=== PATIENT | male | born 1945 | race Caucasian/White ===

== ENCOUNTER 2020-11-24 09:48 | Emergency (ER) | payer MEDICARE, OTHER, SELFPAY ==
--- NOTE | 2020-11-24 10:17 | PC.NURSE ---
1005 called pt on phone, no answer 1010 called pt, left a message 1015 pt walked in to urgent care, taken to triage
[2020-11-24 10:31] VITALS: BP 172/60; PULSE 59; RESP 20; TEMP 36; O2SAT 99
[2020-11-24 10:34] VITALS: BP 172/60; PULSE 59; RESP 20; TEMP 36; O2SAT 99
--- NOTE | 2020-11-24 10:40 | ED.BACK ---
HPI - Back Pain/Injury General Chief Complaint: Back Pain/Injury Stated Complaint: BACK PAIN Time Seen by Provider: 11/24/20 10:27 Source: patient and RN notes reviewed Mode of arrival: ambulatory Limitations: no limitations History of Present Illness HPI Narrative: Patient presents today complaining of right sided mid back pain since yesterday. He was holding onto a large truck handle, when his foot slipped and he fell downward, still holding on the handle with his right hand, straining his midback, below the shoulder blade. Denies numbness or tingling in the arm or hand. Denies neck pain. Pain increases when he tries to reach above his head. He is pain-free at rest, but this increases to 10/10 with movement of the arm or twisting of the body. He has tried a heating pad, Tylenol, and leftover pain pills from a tooth extraction without much relief. He is unable to get comfortable to sleep last night, so he ended up falling asleep on his couch. MD elicited complaint: back pain and back injury Related Data Home Medications Medication Instructions Recorded Confirmed amlodipine 11/24/20 doxazosin mg 11/24/20 flu vacc [id number](65yr up)-PF IM 11/24/20 [Fluzone HighDose Quad 20-21 PF] lisinopril 11/24/20 Allergies Allergy/AdvReac Type Severity Reaction Status Date / Time No Known Allergies Allergy Verified 11/24/20 10:34 Review of Systems Review of Systems: Narrative: CONSTITUTIONAL: Denies body aches, fever, chills, or sweats. EYES: Denies visual changes, redness, or discharge. ENT: Denies rhinorrhea, congestion, sore throat, or otalgia. CARDIOVASCULAR: Denies chest pain, palpitations, or edema. RESPIRATORY: Denies cough or dyspnea. GASTROINTESTINAL: Denies abdominal pain, nausea, vomiting, or diarrhea. GENITOURINARY: Denies dysuria or hematuria. SKIN: Denies rash, itching, or wounds. MUSCULOSKELETAL: Denies joint pain, or myalgia. + Mid back pain NEUROLOGIC: Denies headache, numbness, tingling, or weakness. PSYCH: Denies depression or anxiety. [facility] Past Medical History Medical History (Updated 11/24/20 @ 12:37 by Cintia Overton, CERTIFIED EXECUTIVE CHEF, ) Hypercholesterolemia Hypertension Comments Your blood pressure was elevated above 120/80 today at Urgent Care. This puts you above the threshold for follow up. Please schedule a followup visit with your personal physician as soon as possible, for further evaluation and treatment. Even blood pressure exceeding 120/80 may indicate pre-hypertension. Exam Narrative: Exam Narrative: GENERAL: Well-appearing, well-nourished, and in no acute distress. HEAD: Normocephalic, atraumatic. EYES: EOMI. No redness or drainage. Conjunctivae normal. ENT: Mucous membranes pink and moist. NECK: Normal AROM. Supple. No lymphadenopathy. Nontender. CHEST: No respiratory distress. Nontender anterior ribs. MUSCULOSKELETAL: No bony tenderness of the spine. Right mid thoracic paraspine muscle tenderness, inferior to the scapular, extending to the lateral rib area. Pain increases with AROM of the right arm. AROM is full with significant increased pain with upward reaching. Distal sensation intact. Capillary refill normal. Radial pulse normal. Handgrips equal and strong. EXTREMITIES: Normal range of motion. No edema. SKIN: Warm, dry, no rash. Capillary refill normal. Normal skin turgor. NEURO: No focal deficits. Alert and oriented x3. Gait steady. PSYCH: Normal affect. No signs of depression or anxiety. Course Vital Signs Vital signs: Vital Signs Temperature 96.8 F L 11/24/20 10:31 Pulse Rate 59 L 11/24/20 10:31 Respiratory Rate 20 11/24/20 10:31 Blood Pressure 172/60 H 11/24/20 10:31 Pulse Oximetry 99 11/24/20 10:31 Temperature 96.8 F L 11/24/20 10:34 Pulse Rate 59 L 11/24/20 10:34 Respiratory Rate 20 11/24/20 10:34 Blood Pressure 172/60 H 11/24/20 10:34 Pulse Oximetry 99 11/24/20 10:34 Reviewed. Pt has been instructed to follow
== END 2020-11-24 10:56 | disposition home or self-care (01) ==
PROVIDERS: Emergency Provider Nurse Practitioner; PCP Internal Medicine
DX: S29.012A Strain of muscle and tendon of back wall of thorax, initial encounter (principal); W01.0XXA Fall on same level from slipping, tripping and stumbling without subsequent striking against object, initial encounter; E78.00 Pure hypercholesterolemia, unspecified; I10 Essential (primary) hypertension
CPT/HCPCS: 99203; G0463

== ENCOUNTER 2022-12-05 12:33 | Outpatient (CLI) | payer MEDICARE, OTHER, SELFPAY ==
[2022-12-05 21:26] LABS: Alanine Aminotransferase 29 U/L (6-50); Albumin Level 3.9 g/dL (3.5-5.1); Alkaline Phosphatase 61 U/L (38-126); Anion Gap 6 mmol/L (8-16); Aspartate Amino Transferase 35 U/L (17-59); Bilirubin,Total 0.8 mg/dL (0.2-1.3); Blood Urea Nitrogen 16 mg/dL (9-20); Calcium 9.1 mg/dL (8.4-10.2); Carbon Dioxide 28 mmol/L (22-30); Chloride 106 mmol/L (98-107); Cholesterol 207 mg/dL (0-200); Estimated Glomerular Filt Rate > 60; Glucose 92 mg/dL (65-110); HDL Direct 51 mg/dL; Potassium 4.2 mmol/L (3.4-5.0); Sodium 140 mmol/L (137-145); Triglycerides 88 mg/dL (<150)
[2022-12-05 21:42] LABS: LDL Cholesterol Direct 123 mg/dL
== END 2022-12-05 12:34 | disposition home or self-care (01) ==
PROVIDERS: PCP Family Medicine; Visit Provider Nurse Practitioner
DX: E55.9 Vitamin D deficiency, unspecified (principal); E78.5 Hyperlipidemia, unspecified; Z12.5 Encounter for screening for malignant neoplasm of prostate
CPT/HCPCS: 36415; 80053; 80061; 82306; 84153; G0103

== ENCOUNTER 2023-08-06 09:34 | Outpatient (CLI) | payer MEDICARE, OTHER, SELFPAY | END 2023-08-06 09:35 | disposition home or self-care (01) | LOC: ANHLAB 09:37 | PROVIDERS: PCP Family Medicine; Visit Provider Internal Medicine Cardiovascular Disease | DX: E78.5 Hyperlipidemia, unspecified (principal) | CPT/HCPCS: 36415; 84443 ==

== ENCOUNTER 2023-09-11 12:28 | Outpatient (CLI) | payer MEDICARE, OTHER, SELFPAY ==
--- NOTE | 2023-09-11 12:46 | ECHO_ITS ---
Patient Info Name: Ronny Hernandez Age: 78 years : 1945 Gender: Male Ht: 68 in Wt: 200 lbs BSA: 2.11 m2 HR: 62 bpm BP: 127 / 83 mmHg Heart Rhythm: Sinus Rhythm Technical Quality: Good Exam Date: 09/11/2023 12:50 PM Exam Location: [facility] Patient Status: Outpatient Admit Date: 09/11/2023 Staff Ordering Physician: Rudy Jewell DO Professor Of Anthropology: Jose Dutta RDCS Attending Provider: Rudy Jewell DO Referring Physician: Best ROMERO; Exam Type: CA echo doppler color flow Study Info Indications - murmur Complete two-dimensional, color flow and Doppler transthoracic echocardiogram is performed. Summary 1. Complete two-dimensional, color flow and Doppler transthoracic echocardiogram is performed. 2. Left ventricular chamber dimension is normal. 3. Left ventricular systolic function is normal, estimated at 60-65%. 4. The left ventricular diastolic function is abnormal. 5. E/e' 14 is mildly elevated. 6. Left atrial chamber dimension is moderately enlarged. 7. There is mild aortic valve sclerosis. 8. There is mild to moderate mitral valve regurgitation. 9. There is mild tricuspid valve regurgitation. 10. No pulmonary hypertension, estimated pulmonary arterial systolic pressure is 24 mmHg. 11. There is trace pulmonic regurgitation. Left Ventricle E/e' 14 is mildly elevated. Left ventricular chamber dimension is normal. Left ventricular systolic function is normal, estimated at 60-65%. The left ventricular diastolic function is abnormal. Right Ventricle Right ventricular chamber dimension is normal. Right ventricular systolic function is normal. Left Atria Left atrial chamber dimension is moderately enlarged. Right Atria Right atrial chamber dimension is normal. Aortic Valve The aortic valve is trileaflet. There is mild aortic valve sclerosis. There is no aortic valve stenosis. There is no aortic valve regurgitation. Pulmonic Valve There is trace pulmonic regurgitation. Mitral Valve There is no mitral valve stenosis. There is mild to moderate mitral valve regurgitation. Tricuspid Valve There is mild tricuspid valve regurgitation. No pulmonary hypertension, estimated pulmonary arterial systolic pressure is 24 mmHg. Pericardium/Pleural There is no pericardial effusion. Inferior Vena Cava Normal inferior vena cava with >50% collapse upon inspiration consistent with normal right atrial pressure, 5 mmHg. Aorta The aortic root size at the sinus of Valsalva is normal. Left Ventricular Outflow Tract Name Value Normal LVOT 2D LVOT Diameter 2.0 cm LVOT Doppler LVOT Peak Gradient 6 mmHg LVOT Mean Gradient 4 mmHg LVOT VTI 41 cm LVOT VTI/AV VTI Ratio 0.8 LVOT Stroke Volume 136 ml LVOT CO 5.4 l/min LVOT CI 2.5 l/min/m2 Pulmonic Valve Name Value Normal RVOT Doppler
== END 2023-09-11 12:29 | disposition home or self-care (01) ==
LOC: ANHCARD 12:30
PROVIDERS: PCP Family Medicine; Visit Provider Internal Medicine Cardiovascular Disease
DX: R01.1 Cardiac murmur, unspecified (principal); I08.3 Combined rheumatic disorders of mitral, aortic and tricuspid valves
CPT/HCPCS: 93306

== ENCOUNTER 2024-01-08 09:53 | Outpatient (CLI) | payer MEDICARE, OTHER, SELFPAY ==
[2024-01-08 19:25] LABS: Basophils Percent Auto 0.4 % (0.2-1.2); Eosinophils Absolute Auto 0.1 K/mm3 (0-0.3); Eosinophils Percent Auto 3.1 % (0-4.4); Hematocrit 44.4 % (42.0-52.0); Hemoglobin 14.2 g/dL (14.0-18.0); Immature Granulocyte Absolute 0.01 K/mm3 (0.00-0.031); Immature Granulocyte Percent A 0.2 % (0-0.5); Lymphocytes Absolute Auto 1.02 K/mm3 (0.9-3.2); Lymphocytes Percent Auto 22.8 % (18.3-44.2); Mean Corpuscular Hemoglobin 29.8 pg (26-34); Mean Corpuscular Volume 93.3 fl (80-100); Mean Platelet Volume 12.2 fl (7.4-10.4); Monocytes Absolute Auto 0.4 K/mm3 (0.1-0.6); Monocytes Percent Auto 8.5 % (2.6-8.5); Neutrophils Absolute Auto 2.9 K/mm3 (1.3-6.7); Platelet Count Result 159 k/mm3 (150-375); Red Blood Count 4.76 M/mm3 (4.6-6.20); Red Cell Distribution Width 13.3 % (11.5-14.5); White Blood Count 4.5 K/mm3 (4.5-10.0)
[2024-01-08 19:28] LABS: Alanine Aminotransferase 18 U/L (6-50); Alkaline Phosphatase 67 U/L (38-126); Anion Gap 6 mmol/L (8-16); Aspartate Amino Transferase 48 U/L (17-59); Bilirubin,Total 0.7 mg/dL (0.2-1.3); Blood Urea Nitrogen 22 mg/dL (9-20); Calcium 9.8 mg/dL (8.4-10.2); Carbon Dioxide 26 mmol/L (22-30); Chloride 107 mmol/L (98-107); Cholesterol 198 mg/dL (0-200); Estimated Glomerular Filt Rate 59; Glucose 97 mg/dL (65-110); HDL Direct 49 mg/dL; Potassium 4.6 mmol/L (3.4-5.0); Sodium 139 mmol/L (137-145); Triglycerides 62 mg/dL (<150)
[2024-01-08 19:40] LABS: LDL Cholesterol Direct 122 mg/dL
[2024-01-08 20:00] LABS: Prostate Specific Antigen 2.8 ng/mL (< OR = 4.0)
== END 2024-01-08 09:54 | disposition home or self-care (01) ==
LOC: ANHGOSHLAB 09:54
PROVIDERS: PCP Family Medicine; Visit Provider Family Medicine
DX: Z12.5 Encounter for screening for malignant neoplasm of prostate (principal); Z13.228 Encounter for screening for other metabolic disorders; E78.5 Hyperlipidemia, unspecified; R53.83 Other fatigue; I10 Essential (primary) hypertension
CPT/HCPCS: 36415; 80053; 80061; 84153; 85025; G0103

== ENCOUNTER 2025-01-27 08:40 | Outpatient (CLI) | payer MEDICARE, OTHER, SELFPAY ==
--- OUTSIDE RECORDS SUMMARY | 2025-01-27 09:23 | XMS_ITS | Clinical Summary ---
Author Organization [address] Address [address] [place] [id number] Care Team Providers Care Outside B2B Sales Name Role Phone Scout Cabello MD Primary Care Provid er Allergies No known active allergies Medications multivitamin tablet Active amLODIPine (NORVASC) 10 mg tabletIndications:B enign essential hypertension TAKE 1 TABLET BY MOUTH EVERY DAY 90 tablet 3 1 Active doxazosin (CARDURA) 4 mg tabletIndications:B enign essential hypertension,Benign prostatic hyperplasia with urinary frequency TAKE 1 TABLET BY MOUTH EVERY DAY 90 tablet 3 1 Active celecoxib (CeleBREX) 200 mg capsuleIndications: Primary osteoarthritis involving multiple joints TAKE 1 CAPSULE BY MOUTH EVERY DAY 90 capsule 3 1 Active lisinopriL (PRINIVIL,ZESTRIL) 40 mg tabletIndications:B enign essential hypertension TAKE 1 TABLET BY MOUTH EVERY DAY 90 tablet 3 3 Active Active Problems Problem Noted Date Diagnosed Date Dyslipidemia 09/29/2018 Benign prostatic hyperplasia with lower urinary tract symptoms 10/28/2017 Renal mass 07/04/2017 Personal history of colonic polyps 10/15/2016 Primary osteoarthritis involving multiple joints 10/15/2016 Benign essential hypertension 10/01/2016 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 Nephrolithiasis 01/05/2013 Immunizations Immunization Administration Dates Next Due Influenza, Quadrivalent, Hig h Dose, Preservative Free, Intrr 08/04/2020,08/04/2020 TD Preservative Free 11/26/2016 ZOSTER LIVE 12/29/2013 Surgical History Surgery Date Site/Laterality Comments [place] COLONOSCOPY FLX DX W/MATEUS J SPEC WHEN PFRMD Colonoscopy - (Added by Conv) Medical History Medical History Date Comments Personal history of urinary calculi Nephrolithiasis - 12/07/2012 (Added by Conv) Intra-abdominal and pelvic s welling, mass and lump, unspecified site Mass of abdomen - enoc l mass (Added by Conv) Gout Gout - (Added by Conv) Personal history of other di seases of the circulatory system History of hypertension - (A dded by Conv) Family History Medical History Relation Name Comments Cancer Father Family history of malignant neoplasm - (Added by TW Conv) Cancer Other Cancer - (Added by TW Conv) Diabetes Other Diabetes Mellit us - (Added by Conv) Prostate cancer Other Prostate Can cer - father (Added by Conv) Relation Name Status Comments Father Other Social History Tobacco Use Types Packs/Day Years Used Date Smoking Tobacco: Former Cigarettes Q uit: 1975 Smokeless Tobacco: Never Alcohol Use Standard Drinks/Week Comments Not Currently 0 (1 standard drink = 0.6 oz pur e alcohol) PHQ-2 Answer Date Recorded PHQ-2 Score 0 09/24/2019 Sex and Gender Information Value Date Recorded Sex Assigned at Not on file 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 Gender Identity Not on file Sexual Orientation Not on file Obstetrics History Last Filed Vital Signs Vital Sign Reading Time Taken Comments Blood Pressure 145/80 12/17/2020 2:11 PM REAL ESTATE ADMINISTRATIVE ASSISTANT Pulse 64 12/17/2020 2:11 PM REAL ESTATE ADMINISTRATIVE ASSISTANT Temperature 37.2 C (98.9 F) 12/17/2020 2:11 PM REAL ESTATE ADMINISTRATIVE ASSISTANT Respiratory Rate 16 09/24/2019 9:00 AM REAL ESTATE ADMINISTRATIVE ASSISTANT Oxygen Saturation 94% 12/17/2020 2:11 PM REAL ESTATE ADMINISTRATIVE ASSISTANT Inhaled Oxygen Concentration - - Weight 90.7 kg (200 lb) 12/17/2020 2:11 PM REAL ESTATE ADMINISTRATIVE ASSISTANT Height 172.7 cm (5' 8 ) 12/17/2020 2:11 PM REAL ESTATE ADMINISTRATIVE ASSISTANT Body Mass Index 30.41 12/17/2020 2:11 PM REAL ESTATE ADMINISTRATIVE ASSISTANT Plan of Treatment Not on file Additional Health Concerns Infection Onset Date Last Indicated COVID19 12/17/2020 12/16/2020 Insurance MEDICARE [facility] Care Teams Outside B2B Sales Relationship Specialty Start Date End Date Scout Cabello MD [facility] [address] [place] [address] PCP - General Family Medicine 04/23/21
--- OUTSIDE RECORDS SUMMARY | 2025-01-27 09:23 | XMS_ITS | Encounter Summary ---
Author Organization [facility] Care Team Providers Care Barge Captain Name Role Phone Scout Cabello MD Primary Care Provid er Unknown, Notinfile Primary Care Provider Unavail able Scout Cabello MD Primary Care Provid er Aime Sandhu MD Primary Care Provider [phone] [phone] Scout Cabello MD Primary Care Provid er Encounter Details Date Type Department Care Team (Latest Contact Info) Description 02/13/2017 Orders Only [facility]IN[facility] ProviderRobbie MD [address] [place], [place] [id number] Social History Tobacco Use Types Packs/Day Years Used Date Smoking Tobacco: Former Sex and Gender Information Value Date Recorded Sex Assigned at Not on file 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 us Historical Provider Final Res ult documented in this encounter Visit Diagnoses Not on filedocumented in this encounter Additional Health Concerns Infection Onset Date Last Indicated Resolved Time COVID19 12/17/2020 12/16/2020 documented as of this encounter Care Teams Barge Captain Relationship Specialty Start Date End Date Scout Cabello MD [address] [place] [address] PCP - General 07/04/17 07/08/17 Unknown, Notinfile PCP - General 07/09/17 07/15/17 Scout Cabello MD [address] [place] [address] PCP - General 07/16/17 12/16/20 Aime Sandhu MD [address] [place] [address] PCP - General 12/17/20 04/22/21 Scout Cabello MD [address] [place] [address] PCP - General Family Medicine 04/23/21 documented as of this encounter
--- OUTSIDE RECORDS SUMMARY | 2025-01-27 09:23 | XMS_ITS | Encounter Summary ---
Author Organization [facility] Facility Care Team Providers Care Cloud Systems Architect Name Role Phone Scout Cabello MD Primary Care Provid er Unknown, Notinfile Primary Care Provider Unavail able Scout Cabello MD Primary Care Provid er Aime Sandhu MD Primary Care Provider [phone] Scout Cabello MD Primary Care Provid er Encounter Details Date Type Department Care Team (Latest Contact Info) Description 06/20/2017 Orders Only [facility]INCON[facility] ProviderRobbie MD [address] [place], [place] [id number] Social History Tobacco Use Types Packs/Day Years Used Date Smoking Tobacco: Former Sex and Gender Information Value Date Recorded Sex Assigned at Not on file 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 Historical Provider Final Res ult documented in this encounter Visit Diagnoses Not on filedocumented in this encounter Additional Health Concerns Infection Onset Date Last Indicated Resolved Time COVID19 12/17/2020 12/16/2020 documented as of this encounter Care Teams Cloud Systems Architect Relationship Specialty Start Date End Date Scout Cabello MD [address] [place] [address] PCP - General 07/04/17 07/08/17 Unknown, Notinfile PCP - General 07/09/17 07/15/17 Scout Cabello MD [address] [place] [address] PCP - General 07/16/17 12/16/20 Aime Sandhu MD [address] [place] [address] PCP - General 12/17/20 04/22/21 Scout Cabello MD [address] [place] [address] PCP - General Family Medicine 04/23/21 documented as of this encounter
--- OUTSIDE RECORDS SUMMARY | 2025-01-27 09:23 | XMS_ITS | Referral Summary ---
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 Gender Identity Not on file Sexual Orientation Not on file Last Filed Vital Signs Vital Sign Reading Time Taken Comments Blood Pressure 145/80 12/17/2020 2:11 PM CHILD CARE ASSOCIATE TEACHER Pulse 64 12/17/2020 2:11 PM CHILD CARE ASSOCIATE TEACHER Temperature 37.2 C (98.9 F) 12/17/2020 2:11 PM CHILD CARE ASSOCIATE TEACHER Respiratory Rate 16 09/24/2019 9:00 AM CHILD CARE ASSOCIATE TEACHER Oxygen Saturation 94% 12/17/2020 2:11 PM CHILD CARE ASSOCIATE TEACHER Inhaled Oxygen Concentration - - Weight 90.7 kg (200 lb) 12/17/2020 2:11 PM CHILD CARE ASSOCIATE TEACHER Height 172.7 cm (5' 8 ) 12/17/2020 2:11 PM CHILD CARE ASSOCIATE TEACHER Body Mass Index 30.41 12/17/2020 2:11 PM CHILD CARE ASSOCIATE TEACHER Plan of Treatment Not on file Additional Health Concerns Infection Onset Date Last Indicated COVID19 12/17/2020 12/16/2020 Insurance MEDICARE [facility] [place] [address] Care Teams Mold Presser Relationship Specialty Start Date End Date Scout Cabello MD [facility] [address] [place] [address] PCP - General Family Medicine 04/23/21
[2025-01-27 13:46] LABS: Alanine Aminotransferase 20 U/L (6-50); Albumin Level 3.9 g/dL (3.5-5.1); Alkaline Phosphatase 62 U/L (38-126); Anion Gap 8 mmol/L (4-12); Aspartate Amino Transferase 36 U/L (17-59); Bilirubin,Total 0.8 mg/dL (0.2-1.3); Blood Urea Nitrogen 18 mg/dL (9-20); Calcium 9.2 mg/dL (8.4-10.2); Carbon Dioxide 25 mmol/L (22-30); Chloride 108 mmol/L (98-107); Cholesterol 177 mg/dL (0-200); Estimated Glomerular Filt Rate 57; Glucose 94 mg/dL (65-110); HDL Direct 40 mg/dL; Potassium 4.3 mmol/L (3.4-5.0); Sodium 141 mmol/L (137-145); Triglycerides 108 mg/dL (<150)
[2025-01-27 13:58] LABS: LDL Cholesterol Direct 94 mg/dL
== END 2025-01-27 08:41 | disposition home or self-care (01) ==
LOC: ANHGOSHLAB 08:41
PROVIDERS: Visit Provider Internal Medicine Cardiovascular Disease
DX: E78.5 Hyperlipidemia, unspecified (principal)
CPT/HCPCS: 36415; 80053; 80061

== ENCOUNTER 2025-02-22 13:18 | Outpatient (CLI) | payer MEDICARE, OTHER, SELFPAY ==
--- NOTE | 2025-02-22 13:25 | ECHO_ITS ---
Patient Info Name: Ronny Hernandez Age: 79 years : 1945 Gender: Male Ht: 68 in Wt: 205 lbs BSA: 2.14 m2 HR: 79 bpm BP: 177 / 86 mmHg Technical Quality: Good Exam Date: 02/22/2025 1:28 PM Exam Location: Echo Lab Patient Status: Outpatient Admit Date: 02/22/2025 Staff Ordering Physician: Rudy Jewell DO Donor Relations Associate: Nathalie Remy RDCS Attending Provider: Rudy Jewell DO Referring Physician: Best ROMERO; Exam Type: CA echo doppler color flow Study Info Indications R01.1 - Cardiac murmur, unspecified Complete two-dimensional, color flow and Doppler transthoracic echocardiogram is performed. Summary 1. Complete two-dimensional, color flow and Doppler transthoracic echocardiogram is performed. 2. Left ventricular chamber dimension is normal. 3. Left ventricular systolic function is normal, estimated at 65-70%. 4. There is moderate concentric increased left ventricular wall thickness. 5. The left ventricular diastolic function is abnormal. 6. E/e' 10 is mildly elevated. 7. Left atrial chamber dimension is mildly enlarged. 8. There is mild aortic valve sclerosis. 9. There is trace tricuspid valve regurgitation. 10. No pulmonary hypertension, estimated pulmonary arterial systolic pressure is 38 mmHg. Left Ventricle E/e' 10 is mildly elevated. Left ventricular chamber dimension is normal. Left ventricular systolic function is normal, estimated at 65-70%. There is moderate concentric increased left ventricular wall thickness. The left ventricular diastolic function is abnormal. Right Ventricle Right ventricular systolic function is normal and with normal TAPSE 2.3 cm. Right ventricular chamber dimension is normal. Left Atria Left atrial chamber dimension is mildly enlarged. Right Atria Right atrial chamber dimension is normal. Aortic Valve The aortic valve is trileaflet. There is mild aortic valve sclerosis. There is no aortic valve stenosis. There is no aortic valve regurgitation. Pulmonic Valve There is no pulmonic regurgitation. Mitral Valve There is no mitral valve stenosis. There is no mitral valve regurgitation. Tricuspid Valve There is trace tricuspid valve regurgitation. No pulmonary hypertension, estimated pulmonary arterial systolic pressure is 38 mmHg. Pericardium/Pleural There is no pericardial effusion. Inferior Vena Cava Normal inferior vena cava with >50% collapse upon inspiration consistent with normal right atrial pressure, 5 mmHg. Aorta The aortic root size at the sinus of Valsalva is normal. Left Ventricular Outflow Tract Name Value Normal LVOT 2D LVOT Diameter 1.9 cm LVOT Doppler LVOT Peak Gradient 12 mmHg LVOT Mean Gradient 5 mmHg LVOT VTI 30 cm LVOT VTI/AV VTI Ratio 0.7 LVOT Stroke Volume 84 ml LVOT CO 17.1 l/min LVOT CI 8.0 l/min/m2 Pulmonic Valve Name Value Normal PV Doppler PV Peak Gradient 8 mmHg Mitral Valve Name Value Normal MV Doppler MV Decel [place] 375 cm/s2 MV PHT 69 ms MV Area (PHT) 3.2 cm2 4.0-5.0 MV Diastolic Function MV E Peak Velocity 89 cm/s MV A Peak Velocity 113 cm/s MV E/A 0.8 MV Decel Time 238 ms MV Annular TDI MV E/e' (Septal) 10.2 <=8.0 MV E/e' (Lateral) 10.1 <=8.0 MV E/e' (Average) 10.1 Tricuspid Valve Name Value Normal TV Regurgitation Doppler TR Peak Velocity 287 cm/s TR Peak Gradient 33 mmHg Estimated PAP/RSVP RA Pressure 5 mmHg <=5 PA Systolic Pressure 38 mmHg <36 RV Systolic Pressure 38 mmHg <36 Aorta Name Value Normal Ascending Aorta Ao Root Diameter (MM) 2.8 cm Ao Root Diam Index (MM) 1.3 cm/m2 Aortic Valve Name Value Normal AV Doppler AV Peak Velocity 235 cm/s AV Peak Gradient 22 mmHg AV Mean Gradient 10 mmHg AV VTI 45 cm AV Area (Cont Eq VTI) 1.9 cm2 >=3.0 AV Area (Cont Eq Emeterio) 2.1 cm2 AV Regurgitation 2D LVOT Area 2.8 cm2 Ventricles Name Value Normal LV Dimensions 2D/MM IVS Diastolic Thickness (2D) 1.3 cm 0.6-1.0 LVID Diastole (2D) 4.4 cm 4.2-5.8 LVIW Diastolic Thickness (2D) 1.2 cm 0.6-1.0 LVID Systole (2D) 2.5 cm 2.5-4.0 LVOT Diameter 1.9 cm LV Mass (2D Cubed) 196.47 g 88.00-224.00 LV Mass Index (2D Cubed) 92 g/m2 49-115 Relative Wall Thickness (2D) 0.52 LV Fractional Shortening/Ejection Fraction 2D/MM LV Fractional Shortening (2D) 43 % 25-43 LV EF (2D Teicholz) 75 % 52-72 LV Diastolic Volume (4C MOD) 123 ml LV EF (4C MOD) 68 % LV Diastolic Volume (2C MOD) 92 ml LV EF (2C MOD) 64 % LV Diastolic Volume (BP MOD) 108 ml 62-150 LV Diastolic Volume Index (BP MOD) 50 ml/m2 34-74 LV Systolic Volume (BP MOD) 38 ml 21-61 LV Systolic Volume Index (BP MOD) 18 ml/m2 11-31 LV EF (BP MOD) 65 % 52-72 LV Diastolic Length (4C) 8.3 cm LV Systolic Length (4C) 6.4 cm LV Stroke Volume (4C MOD) 84 ml RV Dimensions 2D/MM RVID Diastole (2D) 3.8 cm 2.5-3.5 Atria Name Value Normal LA Dimensions LA Dimension (MM) 3.2 cm 3.0-4.1 LA Volume (4C A-L) 64 ml LA Volume (BP A-L) 65 ml RA Dimensions RA Area (4C) 14.3 cm2 <=18.0 Report Signatures
--- OUTSIDE RECORDS SUMMARY | 2025-02-22 14:38 | XMS_ITS | Encounter Summary ---
Author Organization [facility] Facility Care Team Providers Care Robotic Machine Tender Production Name Role Phone Scout Cabello MD Primary Care Provid er Unknown, Notinfile Primary Care Provider Unavail able Scout Cabello MD Primary Care Provid er Aime Sandhu MD Primary Care Provider [phone] Scout Cabello MD Primary Care Provid er Encounter Details Date Type Department Care Team (Latest Contact Info) Description 02/13/2017 Orders Only [facility] ProviderRobbie MD [address] [place], [place] [phone] Social History Tobacco Use Types Packs/Day Years Used Date Smoking Tobacco: Former Sex and Gender Information Value Date Recorded Sex Assigned at Not on file 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
--- OUTSIDE RECORDS SUMMARY | 2025-02-22 14:38 | XMS_ITS | Encounter Summary ---
Author Organization [facility] Facility Care Team Providers Care Piece Jobber Name Role Phone Scout Cabello MD Primary Care Provid er Unknown, Notinfile Primary Care Provider Unavail able Scout Cabello MD Primary Care Provid er Aime Sandhu MD Primary Care Provider [phone] Scout Cabello MD Primary Care Provid er Encounter Details Date Type Department Care Team (Latest Contact Info) Description 06/20/2017 Orders Only [facility] CLINCONV ProviderRobbie MD [address] [place], [place] [id number] Social History Tobacco Use Types Packs/Day Years Used Date Smoking Tobacco: Former Sex and Gender Information Value Date Recorded Sex Assigned at Not on file 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
--- OUTSIDE RECORDS SUMMARY | 2025-02-22 14:38 | XMS_ITS | Referral Summary ---
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 Gender Identity Not on file Sexual Orientation Not on file Last Filed Vital Signs Vital Sign Reading Time Taken Comments Blood Pressure 145/80 12/17/2020 2:11 PM TRANSPORTATION EQUIPMENT PAINTER Pulse 64 12/17/2020 2:11 PM TRANSPORTATION EQUIPMENT PAINTER Temperature 37.2 C (98.9 F) 12/17/2020 2:11 PM TRANSPORTATION EQUIPMENT PAINTER Respiratory Rate 16 09/24/2019 9:00 AM TRANSPORTATION EQUIPMENT PAINTER Oxygen Saturation 94% 12/17/2020 2:11 PM TRANSPORTATION EQUIPMENT PAINTER Inhaled Oxygen Concentration - - Weight 90.7 kg (200 lb) 12/17/2020 2:11 PM TRANSPORTATION EQUIPMENT PAINTER Height 172.7 cm (5' 8 ) 12/17/2020 2:11 PM TRANSPORTATION EQUIPMENT PAINTER Body Mass Index 30.41 12/17/2020 2:11 PM TRANSPORTATION EQUIPMENT PAINTER Plan of Treatment Not on file Additional Health Concerns Infection Onset Date Last Indicated COVID19 12/17/2020 12/16/2020 Insurance MEDICARE [facility] Address: [id number] [place] [address] [facility] [place] [address] Care Teams Boiler Coverer Helper Relationship Specialty Start Date End Date Scout Cabello MD [facility] [address] [place] [address] PCP - General Family Medicine 04/23/21
--- OUTSIDE RECORDS SUMMARY | 2025-02-22 14:38 | XMS_ITS | Clinical Summary ---
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 Gender Identity Not on file Sexual Orientation Not on file Obstetrics History Last Filed Vital Signs Vital Sign Reading Time Taken Comments Blood Pressure 145/80 12/17/2020 2:11 PM GIS SPECIALIST Pulse 64 12/17/2020 2:11 PM GIS SPECIALIST Temperature 37.2 C (98.9 F) 12/17/2020 2:11 PM GIS SPECIALIST Respiratory Rate 16 09/24/2019 9:00 AM GIS SPECIALIST Oxygen Saturation 94% 12/17/2020 2:11 PM GIS SPECIALIST Inhaled Oxygen Concentration - - Weight 90.7 kg (200 lb) 12/17/2020 2:11 PM GIS SPECIALIST Height 172.7 cm (5' 8 ) 12/17/2020 2:11 PM GIS SPECIALIST Body Mass Index 30.41 12/17/2020 2:11 PM GIS SPECIALIST Plan of Treatment Not on file Additional Health Concerns Infection Onset Date Last Indicated COVID19 12/17/2020 12/16/2020 Insurance MEDICARE [facility] Care Teams Compliance Administrator Relationship Specialty Start Date End Date Scout Cabello MD [facility] [address] [place] [address] PCP - General Family Medicine 04/23/21
== END 2025-02-22 13:19 | disposition home or self-care (01) ==
PROVIDERS: PCP Emergency Medicine; Visit Provider Internal Medicine Cardiovascular Disease
DX: R93.1 Abnormal findings on diagnostic imaging of heart and coronary circulation (principal); R01.1 Cardiac murmur, unspecified
CPT/HCPCS: 93306

== ENCOUNTER 2025-07-01 08:03 | Outpatient (CLI) | payer MEDICARE, OTHER, SELFPAY ==
--- OUTSIDE RECORDS SUMMARY | 2025-07-01 08:08 | XMS_ITS | Encounter Summary ---
Author Organization [facility] Facility Care Team Providers Care Filing Machine Operator Name Role Phone Scout Cabello MD Primary Care Provid er Unknown, Notinfile Primary Care Provider Unavail able Scout Cabello MD Primary Care Provid er Aime Sandhu MD Primary Care Provider [phone] Scout Cabello MD Primary Care Provid er Encounter Details Date Type Department Care Team (Latest Contact Info) Description 02/13/2017 Orders Only [facility] CLINCONV ProviderRobbie MD [address] [place], [place] [id number] Social History Tobacco Use Types Packs/Day Years Used Date Smoking Tobacco: Former Sex and Gender Information Value Date Recorded Sex Assigned at Not on file 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
--- OUTSIDE RECORDS SUMMARY | 2025-07-01 08:08 | XMS_ITS ---
Author Organization Unknown ENCOUNTERS Encounter Performer Location Date Diagnosis Diagnosis Status [facility] [address] [place] [id number] Outpatient [facility] [address] [place] [address] [id number] [place] Pre Admit [facility] [address] [place] [address] [id number] Outpatient [facility] [address] [place] [phone] [id number] [place] Outpatient Mihai John [facility] [address] [place] [address] [id number] [place] Out[facility] [address] [place] [address] [id number] [place] Outpatient [facility] [address] [place] [address] [id number] [place] Outpatient Karliemurtaza Martinez [facility] [address] [place] [address] [id number] [place] *Note: Encounters from your own facility or health system may be excluded. Allergies, Adverse Reactions, Alerts Allergen Type Severity Identification Date Medications Name Date Quantity Days Supplied BANNER Number
--- OUTSIDE RECORDS SUMMARY | 2025-07-01 08:08 | XMS_ITS | Encounter Summary ---
Author Organization [facility] Facility Care Team Providers Care Director Acute Name Role Phone Scout Cabello MD Primary Care Provid er Unknown, Notinfile Primary Care Provider Unavail able Scout Cabello MD Primary Care Provid er Aime Sandhu MD Primary Care Provider [phone] Scout Cabello MD Primary Care Provid er Encounter Details Date Type Department Care Team (Latest Contact Info) Description 06/20/2017 Orders Only [facility] CLINCONV ProviderRobbie MD [address] [place], [place] [id number] Social History Tobacco Use Types Packs/Day Years Used Date Smoking Tobacco: Former Sex and Gender Information Value Date Recorded Sex Assigned at Not on file 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
--- OUTSIDE RECORDS SUMMARY | 2025-07-01 08:08 | XMS_ITS | Clinical Summary ---
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 MILL OPERATOR Gender Identity Not on file Sexual Orientation Not on file Obstetrics History Last Filed Vital Signs Vital Sign Reading Time Taken Comments Blood Pressure 145/80 12/17/2020 2:11 PM COLLOID MILL OPERATOR Pulse 64 12/17/2020 2:11 PM COLLOID MILL OPERATOR Temperature 37.2 C (98.9 F) 12/17/2020 2:11 PM COLLOID MILL OPERATOR Respiratory Rate 16 09/24/2019 9:00 AM COLLOID MILL OPERATOR Oxygen Saturation 94% 12/17/2020 2:11 PM COLLOID MILL OPERATOR Inhaled Oxygen Concentration - - Weight 90.7 kg (200 lb) 12/17/2020 2:11 PM COLLOID MILL OPERATOR Height 172.7 cm (5' 8) 12/17/2020 2:11 PM COLLOID MILL OPERATOR Body Mass Index 30.41 12/17/2020 2:11 PM COLLOID MILL OPERATOR Plan of Treatment Not on file Additional Health Concerns Infection Onset Date Last Indicated COVID19 12/17/2020 12/16/2020 Insurance MEDICARE [facility] Care Teams Information Technology Specialist Relationship Specialty Start Date End Date Scout Cabello MD [facility] [address] [place] [address] PCP - General Family Medicine 04/23/21
[2025-07-01 09:02] LABS: Alanine Aminotransferase 19 U/L (6-50); Albumin Level 4.0 g/dL (3.5-5.1); Alkaline Phosphatase 58 U/L (38-126); Anion Gap 5 mmol/L (4-12); Aspartate Amino Transferase 28 U/L (17-59); Bilirubin,Total 0.6 mg/dL (0.2-1.3); Blood Urea Nitrogen 22 mg/dL (9-20); Calcium 9.6 mg/dL (8.4-10.2); Carbon Dioxide 26 mmol/L (22-30); Chloride 108 mmol/L (98-107); Cholesterol 193 mg/dL (0-200); Estimated Glomerular Filt Rate 58; Glucose 107 mg/dL (65-110); HDL Direct 43 mg/dL; Potassium 4.9 mmol/L (3.4-5.0); Sodium 139 mmol/L (137-145); Total Protein 6.9 g/dL (6.3-8.2); Triglycerides 77 mg/dL (<150)
== END 2025-07-01 08:04 | disposition home or self-care (01) ==
LOC: ANHLAB 08:05
PROVIDERS: PCP Emergency Medicine; Visit Provider Emergency Medicine
DX: E55.9 Vitamin D deficiency, unspecified (principal); E78.5 Hyperlipidemia, unspecified
CPT/HCPCS: 36415; 80053; 80061; 82306

== ENCOUNTER 2025-07-12 10:54 | Outpatient (CLI) | payer MEDICARE, OTHER, SELFPAY ==
--- NOTE | ~2025-07-12 | XR_ITS ---
EXAMINATION: XR foot RT 2V DATE: 07/12/2025 11:13 INDICATION: Pain in right foot TECHNIQUE: 4 images of the right foot were obtained. COMPARISON: None. FINDINGS: Moderate joint space narrowing at the first metatarsophalangeal joint with adjacent soft tissue swelling. Moderate to severe joint space narrowing of the first tarsometatarsal joint with adjacent soft tissue swelling. No fracture. No dislocation. Vascular calcifications are noted. IMPRESSION: 1. No fracture. No dislocation. 2.Moderate joint space narrowing at the first metatarsophalangeal joint with adjacent soft tissue swelling. 3.Moderate to severe joint space narrowing of the first tarsometatarsal joint with adjacent soft tissue swelling. If symptoms persist or worsen, consider a short-term follow-up study or additional imaging for further assessment. Reviewed, dictated and finalized at location Q. IMPRESSION: 1. No fracture. No dislocation. 2.Moderate joint space narrowing at the first metatarsophalangeal joint with ad jacent soft tissue swelling. 3.Moderate to severe joint space narrowing of the first tarsometatarsal joint w ith adjacent soft tissue swelling. If symptoms persist or worsen, consider a short-term follow-up study or additio nal imaging for further assessment.
== END 2025-07-12 10:55 | disposition home or self-care (01) ==
LOC: MICIMG 10:58
PROVIDERS: PCP Emergency Medicine; Visit Provider Emergency Medicine
DX: M19.071 Primary osteoarthritis, right ankle and foot (principal); R60.9 Edema, unspecified
CPT/HCPCS: 73620

== ENCOUNTER 2025-08-02 07:53 | Emergency (ER) | payer MEDICARE, OTHER, SELFPAY ==
--- NOTE | ~2025-08-02 | CT_ITS ---
EXAMINATION: CT lumbar spine wo con COMPARISON: None HISTORY: lower back pain TECHNIQUE: Axial images were obtained through the spine without IV contrast. Coronal, sagittal reconstruction images were obtained from the axial views. CT scan performed using dose optimization techniques including the following automated exposure control; adjustment of mA and/or kV; use of iterative reconstruction technique. Automatic exposure control was used to reduce radiation dose. Permanent radiation dose record is archived to PACS. FINDINGS: The vertebral heights are intact. No fracture or subluxation. The disc heights are intact. Soft tissues demonstrate partially imaged probable complex left renal cyst but incompletely evaluated measuring 4 x 5 cm with a complex focus also of the right kidney measuring 1 x 1 cm possibly sequelae of previous intervention but incompletely evaluated, outpatient ultrasound recommended severe loss of disc height at L4-5 and L5-S1 with disc osteophyte complex and moderate to severe canal and foraminal stenosis. Impression: 1. No acute fracture. Incidental findings above Reviewed, dictated and finalized at location A. Impression: 1. No acute fracture. Incidental findings above
--- NOTE | ~2025-08-02 | CT_ITS ---
EXAMINATION: CT abdomen pelvis w con DATE: 08/02/2025 11:45 INDICATION: Right flank pain. TECHNIQUE: Computed tomography (CT) of the abdomen and pelvis was performed with 100 mL Omnipaque 350 intravenous contrast. Automated exposure control and iterative reconstruction technique were employed. The dose-length product was 862.79 mGy-cm. COMPARISON: None. FINDINGS: The visualized portions of lung bases demonstrate peripheral septal thickening in the lungs bilaterally, right worse than left, likely chronic. No bronchiectasis or honeycombing. No pleural effusion. The heart size is normal. There are coronary artery calcifications. There are calcifications of the aortic valve. No pericardial effusion. There is a small sliding hiatal hernia. There is a 5 mm cyst in the liver. The gallbladder is normal. Calcifications in the spleen are consistent with old granulomatous disease. The pancreas and adrenal glands are normal. There are cysts in the kidneys measuring up to 6.5 cm on the left. There is cortical thinning of the kidneys. There is embolization material at the hilum of right kidney upper pole. There is a 6.2 cm mass abutting the right kidney upper pole containing fat, which may be an angiomyolipoma or old fat necrosis. The prostate is moderately enlarged. There is diverticulosis of the colon without evidence of diverticulitis. There are no dilated loops of bowel. The appendix is normal. There are no pathologically enlarged lymph nodes. There is no free intraperitoneal fluid. There is an old healed right rib fracture. There is severe lower lumbar spondylosis. There is a benign bone island in L2 vertebral body. IMPRESSION: 1. No etiology for the patient's symptoms. Reviewed, dictated and finalized at location E.
[2025-08-02 07:58] VITALS: PULSE 62; RESP 17; TEMP 36.3; O2SAT 96
--- NOTE | 2025-08-02 08:02 | ED.GENADULT ---
HPI - General Adult General Chief complaint: Extremity Injury, Lower Stated complaint: right lower back, leg pain Time Seen by Provider: 08/02/25 08:01 Source: patient Mode of arrival: ambulatory Limitations: no limitations History of Present Illness HPI narrative: 80 years old white male complaining of right flank right lower back pain started 1 week ago, was seen at [facility] on July 28, and again on July 30, with diagnosis of flank pain and lower back pain, patient is not improving. He denies any recent trauma, fever, chills, nausea, vomiting, abdominal pain, or shortness of breath. Pain is radiating to the lateral side of the right hip and right thigh Related Data Home Medications ?Medication ?Instructions ?Recorded ?Confirmed ?Last Taken ?Type aspirin 81 mg tablet,delayed 81 mg PO DAILY 12/05/22 07/12/25 Unknown History release (Adult Aspirin Regimen) multivitamin (Daily Multi-Vitamin 1 tablet PO DAILY 12/05/22 07/12/25 Unknown History tablet) cholecalciferol (vitamin D3) 25 50 mcg PO DAILY 07/26/24 07/12/25 Unknown History mcg (1,000 unit) capsule Allergies Allergy/AdvReac Type Severity Reaction Status Date / Time No Known Allergies Allergy Verified 08/02/25 08:01 Review of Systems Review of Systems: All systems reviewed & are unremarkable except as noted in HPI and below PMFSH Past Medical History Medical History Hypertension Hypercholesterolemia Hypertension Family History Family History Mother , Age 85 Colon Rupture Diabetes mellitus Father , Age 78 Cancer Social History Social History Social History: caffeine- 3 cans zero sugar soda daily Years smoked: 12 Smoking status: Former smoker Second hand tobacco smoke exposure: Yes Smoking end date: 11/17/75 Alcohol intake: never Substance use: never Substance use type: does not use Do You Feel Safe in your Home?: Yes Lack of Transportation: No Lack of Food: Never True Current Housing: I Have Housing Concerned About Future Housing: No Difficulty Paying Gas/Electric Bills: No Difficulty Paying for Meds: No Currently Unemployed: Decline to Answer Education: High School Diploma/GED Difficulty w/ Childcare or Family Care: No Living arrangements: with family Occupation/Education: retired Gender identity (if verbalized by the patient): Male Sexual Orientation (if Verbalized by the Patient): Straight or Heterosexual Exam Narrative: General appearance: Well-developed, well-nourished Skin: Normal color Head: Normocephalic, nontraumatic Eyes: Clear conjunctiva ENT: Oropharynx normal, ears normal, nose normal Neck: Supple, nontender Chest and respiratory: Airway patent, no respiratory distress, no accessory muscle use Heart: Regular rate/rhythm Abdomen: Soft, nontender, no organomegaly, quiet bowel sounds Vascular: Normal peripheral pulses, normal capillary refill. Musculoskeletal: Normal range of motion, nontender back Neurologic: Alert and oriented ?3, DISPLAYER MERCHANDISE is normal as tested, no gross motor deficit Course Vital Signs Vital signs: Vital Signs Temperature 36.3 C L 08/02/25 07:58 Pulse Rate 62 08/02/25 07:58 Respiratory Rate 17 08/02/25 07:58 Pulse Oximetry 96 08/02/25 07:58 Oxygen Delivery Room Air 08/02/25 07:58 Temperature 36.3 C L 08/02/25 07:58 Pulse Rate 84 08/02/25 12:33 Respiratory Rate 16 08/02/25 12:33 Blood Pressure 169/85 H 08/02/25 12:33 Pulse Oximetry 97 08/02/25 12:33 Oxygen Delivery Room Air 08/02/25 07:[address] [facility] Narrative Medical decision making narrative: Patient came with right flank pain radiating to right lower back Vital signs are stable Physical examination consistent with tenderness at the right flank area Differential diagnosis musculoskeletal, kidney stone, pyelonephritis, intra-abdominal pathology Blood workup today includes CBC, CMP, lipase showed insignificant abnormality Urinalysis showed insignificant abnormality CT abdomen and pelvis with IV cont showed no acute abnormality. Diagnosis right flank pain, right lower back pain Patient currently on meloxicam 50 mg once a day Discharged on cyclobenzaprine The pt was discharged to home.the pt,s condition upon discharge was fair,education was provided to the pt in reference to the final impression,discharge study results,treatment,prognosis and need for follow up . Differential Diagnosis Differential Diagnosis: as above Vital Signs Vital Signs: Vital Signs Temperature 36.3 C L 08/02/25 07:58 Pulse Rate 62 08/02/25 07:58 Respiratory Rate 17 08/02/25 07:58 Pulse Oximetry 96 08/02/25 07:58 Oxygen Delivery Room Air 08/02/25 07:58 Temperature 36.3 C L 08/02/25 07:58 Pulse Rate 84 08/02/25 12:33 Respiratory Rate 16 08/02/25 12:33 Blood Pressure 169/85 H 08/02/25 12:33 Pulse Oximetry 97 08/02/25 12:33 Oxygen Delivery Room Air 08/02/25 07:58 Lab Data 08/02/25 10:48 08/02/25 10:48 Labs: Lab Results 08/02/25 Range/Units 10:48 WBC 5.1 (4.5-10.0) K/mm3 RBC 4.52 L (4.6-6.20) M/mm3 Hgb 13.4 L (14.0-18.0) g/dL Hct 39.6 L (42.0-52.0) % MCV 87.6 (80-100) fl MCH 29.6 (26-34) pg MCHC 33.8 (32-36) g/dl RDW 13.4 (11.5-14.5) % Plt Count 171 (150-375) k/mm3 MPV 10.8 H (7.4-10.4) fl Immature Gran % (Auto) 0.2 (0-0.5) % Neut % (Auto) 77.7 H (45.5-73.1) % Lymph % (Auto) 13.5 L (18.3-44.2) % Teller % (Auto) 7.6 (2.6-8.5) % Eos % (Auto) 0.6 (0-4.4) % Baso % (Auto) 0.4 (0.2-1.2) % Lymph # (Auto) 0.69 L (0.9-3.2) K/mm3 Teller # (Auto) 0.4 (0.1-0.6) K/mm3 Eos # (Auto) 0.0 (0-0.3) K/mm3 Baso # (Auto) 0.0 (0.0-0.1) K/mm3 Abs Immat Gran (auto) 0.01 (0.00-0.031) K/mm3 Absolute Neuts (auto) 4.0 (1.3-6.7) K/mm3 Absolute Nucleated RBC 0.000 (0.0-0.012) K/mm3 Nucleated RBC % 0.0 (0.0-0.2) % Sodium 137 (137-145) mmol/L Potassium 4.1 (3.4-5.0) mmol/L Chloride 108 H (98-107) mmol/L Carbon Dioxide 21 L (22-30) mmol/L Anion Gap 8 (4-12) mmol/L BUN 22 H (9-20) mg/dL Creatinine 1.15 (0.7-1.3) mg/dL Estim Creat Clear Calc 52 ml/min Estimated GFR > 60 (59 - ) Glucose 107 (65-110) mg/dL Calcium 9.6 (8.4-10.2) mg/dL Total Bilirubin 0.8 (0.2-1.3) mg/dL AST 27 (17-59) U/L ALT 20 (6-50) U/L Alkaline Phosphatase 65 (38-126) U/L Total Protein 7.1 (6.3-8.2) g/dL Albumin 4.0 (3.5-5.1) g/dL Urine Color Yellow (Yellow) Urine Appearance Clear (Clear) Urine pH 7.0 (5.0-9.0) Ur Specific [place] 1.011 (1.001-1.035) Urine Protein Negative (Negative) mg/dL Urine Glucose (UA) Negative (Negative) mg/dL Urine Ketones Trace H (Negative) mg/dL Ur Blood (Man) Negative (Negative) Urine Nitrate Negative (Negative) Urine Bilirubin Negative (Negative) Urine Urobilinogen 0.2 (<2.0) mg/dL Leukocyte Esterase Rfl Negative (Negative) PIO/UL Imaging Data Radiologist's impression: Impressions Lumbar Spine CT 08/02/25 08:17 Impression: 1. No acute fracture. Incidental findings above Critical Care Time Critical Care Time Critical Care Time: No Discharge Plan Discharge Clinical Impression: Acute flank pain, Lower back pain Patient Disposition: Home Condition: Stable Instructions: Flank Pain (ED), Back Pain (ED), Lower Back Exercises (ED) Additional Instructions: Return if symptoms are worsening , call your family physician for appointment, take Tylenol as as needed for aches and pain, continue home medications. Massage Heating pad Exercise Physical therapy Patient Language: Dutch Prescriptions: New cyclobenzaprine 10 mg tablet 10 mg PO TID PRN (Reason: muscle spasm) Qty: 20 0RF No Action aspirin [Adult Aspirin Regimen] 81 mg tablet,delayed release (DR/EC) 81 mg PO DAILY multivitamin [Daily Multi-Vitamin] Tablet 1 tablet PO DAILY cholecalciferol (vitamin D3) 25 mcg (1,000 unit) capsule 50 mcg PO DAILY meloxicam 15 mg tablet 15 mg PO DAILY Qty: 90 2RF doxazosin 4 mg tablet 4 mg PO DAILY Qty: 90 2RF hydralazine 50 mg tablet See Rx Instructions .ROUTE .COMPLEX Qty: 270 2RF Dose Instruction: TAKE 1 TABLET BY MOUTH TWICE A DAY Rx Instructions: TAKE 1 TABLET BY MOUTH TID tamsulosin [Flomax] 0.4 mg capsule 0.4 mg PO DAILY Qty: 90 2RF losartan 100 mg tablet See Rx Instructions .ROUTE .COMPLEX Qty: 90 2RF Dose Instruction: TAKE 1 TABLET BY MOUTH EVERY DAY Rx Instructions: TAKE 1 TABLET BY MOUTH EVERY DAY losartan 100 mg tablet See Rx Instructions .ROUTE .COMPLEX Qty: 90 2RF Dose Instruction: TAKE 1 TABLET BY MOUTH EVERY DAY Rx Instructions: TAKE 1 TABLET BY MOUTH EVERY DAY amlodipine 10 mg tablet See Rx Instructions .ROUTE .COMPLEX Qty: 90 2RF Dose Instruction: TAKE 1 TABLET BY MOUTH ONCE DAILY Rx Instructions: TAKE 1 TABLET BY MOUTH ONCE DAILY Follow-up/Referrals: Javier Barros MD [Primary Care Provider, Internal Medicine]
[2025-08-02 08:03] VITALS: BP 140/68; PULSE 64; RESP 14; O2SAT 98
--- OUTSIDE RECORDS SUMMARY | 2025-08-02 08:30 | XMS_ITS | Clinical Summary ---
Author Organization [address] Address [address] [address] Care Team Providers Care Informatics Specialist Name Role Phone Javier Barros MD Primary Care Provide r Allergies No known active allergies Medications multivitamin tablet Take 1 tablet by mouth daily Active amLODIPine (NORVASC) 10 mg tabletIndications: Benign essential hypertension TAKE 1 TABLET BY MOUTH EVERY DAY 90 tablet 3 10/22/20 21 Active doxazosin (CARDURA) 4 mg tabletIndications: Benign essential hypertension,Benig n prostatic hyperplasia with urinary frequency TAKE 1 TABLET BY MOUTH EVERY DAY 90 tablet 3 10/22/20 21 Active albuterol HFA (PROVENTIL HFA,VENTOLIN HFA,PROAIR HFA) 90 mcg/actuation inhaler Inhale 2 puffs every 4 (four) hours as needed for shortness of breath 04/24/20 25 Active aspirin 81 mg enteric coated tablet Take 1 tablet (81 mg total) by mouth daily 12/05/19 23 Active cholecalciferol (VITAMIN D-3) 1,000 unit capsule Take 2 capsules (2,000 Units total) by mouth daily 07/26/20 24 Active hydrALAZINE (APRESOLINE) 50 mg tablet Take 1 tablet (50 mg total) by mouth 3 (three) times a day 01/25/20 25 Active losartan (COZAAR) 100 mg tablet Take 1 tablet (100 mg total) by mouth daily 10/27/20 24 Active meloxicam (MOBIC) 15 mg tablet Take 1 tablet (15 mg total) by mouth daily 05/04/20 25 Active tamsulosin (FLOMAX) 0.4 mg extended release capsule Take 1 capsule (0.4 mg total) by mouth daily 07/12/20 25 Active ketorolac (TORADOL) 10 mg tablet Take 1 tablet (10 mg total) by mouth every 6 (six) hours as needed for pain 20 tablet 07/30/20 25 Active lidocaine (LIDODERM) 5 %Indications:Pain Place 1 patch on the skin daily for 12 hours Use patch for 12 hours on, 12 hours off. Discard after each use 7 patch 07/30/20 25 Active TiZANidine (ZANAFLEX) 4 mg capsule Take 1 capsule (4 mg total) by mouth 3 (three) times a day 90 capsule 07/30/20 25 026 Active celecoxib (CeleBREX) 200 mg capsuleIndications :Primary osteoarthritis involving multiple joints TAKE 1 CAPSULE BY MOUTH EVERY DAY 90 capsule 3 10/22/20 21 025 Discontin ued(Thera py completed ) lisinopriL (PRINIVIL,ZESTRIL) 40 mg tabletIndications: Benign essential hypertension TAKE 1 TABLET BY MOUTH EVERY DAY 90 tablet 3 01/28/20 23 025 Discontin ued(Thera py completed ) Active Problems Problem Noted Date Diagnosed Date Dyslipidemia 09/29/2018 Benign prostatic hyperplasia with lower urinary tract symptoms 10/28/2017 Renal mass 07/04/2017 Personal history of colonic polyps 10/15/2016 Primary osteoarthritis involving multiple joints 10/15/2016 Benign essential hypertension 10/01/2016 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 Nephrolithiasis 01/05/2013 Encounters Date Type Department Care Team Description 07/30/2025 1:36 PM [facility] - 07/30/2025 4:20 PM [facility] Emergency Department [address] [place] [id number] Low back pain, unspecified back pain laterality, unspecified chronicity, unspecified whether sciatica present (Primary Dx) Discharge Disposition: Discharge to home or self care 07/28/2025 11:35 AM T - 07/28/2025 2:24 PM [facility] Emergency Department [address] [place] [id number] Kerrie Hastings MD Flank pain (Primary Dx); Abdominal pain Discharge Disposition: Discharge to home or self care from Last 3 Months Immunizations Immunization Administration Dates Next Due Influenza, Quadrivalent, Hig h Dose, Preservative Free, Intrr 08/04/2020,08/04/2020 TD Preservative Free 11/26/2016 ZOSTER LIVE 12/29/2013 Surgical History Surgery Date Site/Laterality Comments IN COLONOSCOPY FLX DX W/MATEUS J SPEC WHEN PFRMD Colonoscopy - (Added by Ondango Conv) Medical History Medical History Date Comments Personal history of urinary calculi Nephrolithiasis - 12/07/2012 (Added by TW Conv) Intra-abdominal and pelvic s welling, mass and lump, unspecified site Mass of abdomen - enoc l mass (Added by Ondango Conv) Gout Gout - (Added by Ondango Conv) Personal history of other di seases of the circulatory system History of hypertension - (A dded by [employer]) Family History Medical History Relation Name Comments Cancer Father Family history of malignant neoplasm - (Added by Ondango Conv) Cancer Other Cancer - (Added by Ondango Conv) Diabetes Other Diabetes Mellit us - (Added by Ondango Conv) Prostate cancer Other Prostate Can cer - father (Added by Ondango Conv) Relation Name Status Comments Father Other Social History Tobacco Use Types Packs/Day Years Used Date Smoking Tobacco: Former Cigarettes Q uit: 1976 Smokeless Tobacco: Never Alcohol Use Standard Drinks/Week Comments Not Currently 0 (1 standard drink = 0.6 oz pur e alcohol) PHQ-2 Answer Date Recorded PHQ-2 Score 0 09/24/2019 Personal Safety Answer Date Recorded Have you ever been in or are you currently in a harmful physical or emotional relationship or is someone making you feel afraid or unsafe? Denies 07/30/2025 Sex and Gender Information Value Date Recorded Sex Assigned at Not on file Legal Sex Male 9:30 AM BLADE [employer]END[employer] Gender Identity Not on file Sexual Orientation Not on file Obstetrics History Last Filed Vital Signs Vital Sign Reading Time Taken Comments Blood Pressure 156/63 07/30/2025 4:00 PM CDT Pulse 75 07/30/2025 4:00 PM CDT Temperature 36.4 C (97.5 F) 07/30/2025 1:19 PM CDT Respiratory Rate 18 07/30/2025 1:19 PM CDT Oxygen Saturation 97% 07/30/2025 4:00 PM CDT Inhaled Oxygen Concentration - - Weight 92.7 kg (204 lb 5.9 oz) 07/30/2025 1:19 P M CDT Height 172.7 cm (5' 8) 07/30/2025 1:19 PM CDT Body Mass Index 31.07 07/30/2025 1:19 PM CDT Plan of Treatment Health Maintenance Due Date Last Done Comments Hepatitis C Screening 1945 Hepatitis B Screening 1965 Pneumococcal vaccine 65+ (1 of 1 - PCV) 1997 Zoster Vaccine (2 of 3) 02/23/2014 12/29/2013 DTaP/Tdap/Td Vaccine (1 - Tdap) 11/27/2016 7 Depression Screening 09/24/2020 09/24/2019, 09/24/20 19 Fall Risk Assessment 09/24/2020 09/24/2019 Well Visit 65+ 09/24/2020 09/24/2019 Covid-19 Vaccine (2 - 2024-2 6 season) 2025 07/12/2021 Influenza Vaccine (#1) 2025 08/04/2020, 2019 Colon Cancer Screening-CT Colonography Discontinued 12/19/2022, 12/19/2022, 12/19/2022 Colon Cancer Screening-Colonoscopy Discontinued 12/19/2022, 12/19/2022, 12/19/2022 Colon Cancer Screening-DNA Stool Discontinued 12/19/2022, 12/19/2022, 12/19/2022 Colon Cancer Screening-FIT Discontinued 12/19, 12/19/2022, 12/19/2022 Colon Cancer Screening-FOBT Discontinued 12/2022, 12/19/2022, 12/19/2022 Colon Cancer Screening-Sigmoidoscopy Discontinued 12/19/2022, 12/19/2022, 12/19/2022 Colorectal Cancer Screening Discontinued Abdominal Aortic Aneurysm (A AA) Screen Completed 07/28/2025, 07/09/2017, 06/15/2013, Additional history exists Procedures Procedure Name Priority Date/Time Associated Diagnosis Comments URINALYSIS AND REFLEX TO MICROSCOPIC AND CULTURE STAT 07/28/2025 12:[address] ABDOMEN PELVIS WO CONTRAST ED 07/28/2025 12:13 PM CDT EGFR STAT 07/28/2025 10:36 AM CDT DIFFERENTIAL AUTO STAT 07/28/2025 10: 36 AM CDT LIPASE STAT 07/28/2025 10:36 AM CDT COMPREHENSIVE METABOLIC PANEL STAT 07/28/2025 10:36 AM CDT CBC WITH AUTO DIFFERENTIAL STAT 07/28/2025 10:36 AM CDT COLONOSCOPY Routine 12/19/2022 from Last 3 Months or Most Recently Relevant to Health Maintenance Results * Urinalysis reflex to microscopic and culture Urine (07/28/2025 12:35 PM CDT) Color, ur Yellow Yellow Comment:Testing performed by : [address] [address] Clarity, ur Clear Clear ALLAN Comment:Testing performed by : [address] [address] Specific gravity, ur 1.010 1.003 - 1.030 ALLAN Comment:Testing performed by : [address] [address] pH, urine 7.5 ALLAN Comment: Interpretive Data U rine pH is affected by diet, medications, systemic acid-base disturbances, and renal tubular function. pH may affect urinary stone formation. For example, urine pH below 6.0 may help reduce the tendency for calcium phosphate stones and pH greater than 6.0 may reduce the tendency for uric acid stone formation. Source: [facility] [employer] Current Interpretive Data was last revised on 2017 Testing performed by: [address] [address] Protein, ur ql Negative Negative ALLAN Comment:Testing performed by : [address] [address] Glucose, ur ql Negative Negative ALLAN Comment:Testing performed by : [address] [address] Ketones, ur Negative Negative ALLAN Comment:Testing performed by : [facility], [address] [place] [address]., [address] Bilirubin, ur Negative Negative ALLAN Comment:Testing performed by : [address], [place]., [address] Blood, ur Negative Negative ALLAN Comment:Testing performed by : [address], [place]., [address] Urobilinogen, ur <2.0 <2.0 mg/dL ALLAN Comment:Testing performed by : [address], [place]., [address] Nitrite, ur Negative Negative ALLAN Comment:Testing performed by : [address] [address] Leukocyte esterase, ur Negative Negative ALLAN Comment:Testing performed by : [address], [place]., [address] UA reflex comment Reflex conditions for microscopic UA and culture not met. ALLAN Comment:Testing performed by : [address], [place]., [address] Urine 07/28/2025 12:3 5 PM CDT 07/28/2025 12:41 PM CDT [facility] MICROBIOLOGY - [facility] Final Result ALLAN [address] [facility] [place] [address] * CT Abdomen Pelvis WO Contrast (07/28/2025 12:13 PM CDT) Anatomical Region Laterality Modality Body N/A Computed Tomogra phy 07/28/2025 12:3 0 PM CDT Narrative 07/28/2025 12:38 PM CDT EXAM DESCRIPTION: CT ABDOMEN PELVIS WO CONTRAST REASON FOR STUDY: Abdominal/flank pain, stone suspected Pt reports R flank pain starting yesterday. Denies n/v/d or urinary symptoms. Hx of kidney stones. TECHNIQUE: CT scan of the abdomen and pelvis performed without intravenous and without oral contrast using helical scanning technique. Reconstructed coronal and sagittal MPR images reviewed. All images stored on PACS. Automated exposure control was used as a dose optimization technique for this examination. COMPARISON: 07/09/2017. FINDINGS: The sensitivity for detection of visceral lesions is diminished without the use of intravenous contrast. LOWER CHEST: Mild subpleural reticular opacities with tree-in-bud opacities in the right lower lobe. There is no pleural effusion. LIVER: Liver size is normal. No focal hepatic lesion. GALLBLADDER: No gallstones or overt inflammatory change. BILE DUCTS: No biliary ductal dilation. SPLEEN: Granulomatous calcifications are seen in the spleen. No focal splenic lesion. PANCREAS: No pancreatic mass or inflammatory change. ADRENALS: Normal. KIDNEYS/URINARY TRACT: Metallic densities in the right kidney may be embolization coils. There is an area of lobular encapsulated macroscopic fat from the upper pole right kidney, 6.9 x 5.6 cm similar to the prior study. Mild right perinephric stranding. There is the lesion lower pole right kidney 0.8 cm 9 Hounsfield units likely cyst. Mild left perinephric stranding. Low-density lesion left kidney 6 cm x 4.8 cm, 4 Hounsfield units. Lesion lower pole left kidney 3 cm 1 Hounsfield unit, midpole 1.6 cm 2 Hounsfield units and 2.2 cm 12 Hounsfield units characteristic of cysts. The urinary bladder unremarkable. GI: No evidence of bowel obstruction. Mild sigmoid colon diverticulosis. No evidence of acute diverticulitis. Terminal ileum and the appendix are normal. There is a small paraesophageal lymph node 0.7 x 0.5 cm. No pneumatosis is seen. No abnormal bowel wall thickening. PERITONEUM: No ascites or free air. No mesenteric mass or lymphadenopathy. RETROPERITONEUM: No retroperitoneal mass or lymphadenopathy. REPRODUCTIVE: Mild enlargement of the prostate. No adnexal mass. Trace hydrocele. VASCULATURE: Abdominal aorta nonaneurysmal. MUSCULOSKELETAL: Bone windows demonstrated no acute or aggressive osseous abnormality. There is a small area of sclerosis in the left aspect of the pubic symphysis. There is trace retrolisthesis L4 on L5 and L5 on S1. OTHER: No other abnormality. IMPRESSION: 1. No evidence of an acute abnormality of the abdomen and pelvis. 2. No evidence of urolithiasis or obstructive uropathy. 3. Bilateral renal cysts. 4. Metallic densities in the right kidney may be embolization coils. 5. Unchanged area of encapsulated macroscopic fat from the upper pole right kidney 6.9 cm. 6. Sigmoid colon diverticulosis without evidence of acute diverticulitis. 7. Mild enlargement of the prostate. 8. Mild subpleural reticular opacities with tree-in-bud opacities in the right lower lobe likely infectious or inflammatory. THIS IS AN ELECTRONICALLY VERIFIED FINAL REPORT 07/28/2025 12:38 PM - Electronically signed by Gerard Campo M.D. CH: Report ID: [id number] Reading Location: [place] [address] Procedure Note Gerard Campo Jr., MD - 07/28/2025 EXAM DESCRIPTION: CT ABDOMEN PELVIS WO CONTRAST REASON FOR STUDY: Abdominal/flank pain, stone suspected Pt reports R flank pain starting yesterday. Denies n/v/d or urinarysymptoms. Hx of kidney stones. TECHNIQUE: CT scan of the abdomen and pelvis performed without intravenousand without oral contrast using helical scanning technique. Reconstructed coronal and sagittal MPR images reviewed. All images stored on PACS.Automated exposure control was used as a dose optimization technique for this examination. COMPARISON: 07/09/2017. FINDINGS: The sensitivity for detection of visceral lesions is diminished without the use of intravenous contrast. LOWER CHEST: Mild subpleural reticular opacities with [id number] in the right lower lobe. There is no pleural effusion. LIVER: Liver size is normal. No focal hepatic lesion. GALLBLADDER: No gallstones or overt inflammatory change. BILE DUCTS: No biliary ductal dilation. SPLEEN: Granulomatous calcifications are seen in the spleen. No focal splenic lesion. PANCREAS: No pancreatic mass or inflammatory change. ADRENALS: Normal. KIDNEYS/URINARY TRACT: Metallic densities in the right kidney may be embolization coils. There is an area of lobular encapsulated macroscopicfat from the upper pole right kidney, 6.9 x 5.6 cm similar to the prior study. Mild right perinephric stranding. There is the lesion lower pole rightkidney 0.8 cm 9 Hounsfield units likely cyst. Mild left perinephric stranding. Low-density lesion left kidney 6 cm x 4.8 cm, 4 Hounsfield units. Lesion lower pole left kidney 3 cm 1 Hounsfield unit, midpole 1.6 cm 2 Hounsfield units and 2.2 cm 12 Hounsfield units characteristic of cysts. Theurinary bladder unremarkable. GI: No evidence of bowel obstruction. Mild sigmoid colon diverticulosis.No evidence of acute diverticulitis. Terminal ileum and the appendix arenormal. There is a small paraesophageal lymph node 0.7 x 0.5 cm. No pneumatosisis seen. No abnormal bowel wall thickening. PERITONEUM: No ascites or free air. No mesenteric mass orlymphadenopathy. RETROPERITONEUM: No retroperitoneal mass or lymphadenopathy. REPRODUCTIVE: Mild enlargement of the prostate. No adnexal mass.Trace hydrocele. VASCULATURE: Abdominal aorta nonaneurysmal. MUSCULOSKELETAL: Bone windows demonstrated no acute or aggressiveosseous abnormality. There is a small area of sclerosis in the left aspect of the pubic symphysis. There is trace retrolisthesis L4 on L5 and L5 on S1. OTHER: No other abnormality. IMPRESSION: 1. No evidence of an acute abnormality of the abdomen and pelvis. 2. No evidence of urolithiasis or obstructive uropathy. 3. Bilateral renal cysts. 4. Metallic densities in the right kidney may be embolization coils. 5. Unchanged area of encapsulated macroscopic fat from the upper poleright kidney 6.9 cm. 6. Sigmoid colon diverticulosis without evidence of acutediverticulitis. 7. Mild enlargement of the prostate. 8. Mild subpleural reticular opacities with tree-in-bud opacities in the right lower lobe likely infectious or inflammatory. THIS IS AN ELECTRONICALLY VERIFIED FINAL REPORT 07/28/2025 12:38 PM - Electronically signed by Gerard Campo M.D. CH: TREMAINE Report ID: [id number] Reading Location: [place] [address] PROCEDURES Final Result * eGFR (07/28/2025 10:36 AM CDT) eGFR 67 >=60 mL/min/1. 73 m2 Comment: Interpretive Data Reference Interval Normal >/= 90 mL/min/1.73m2 Mildly decreased* 60 - 89 mL/min/1.73m2 Mildly to moderately decreased 45 - 59 mL/min/1.73m2 Moderately to severely decreased 30 - 44 mL/min/1.73m2 Severely decreased 15 - 29 mL/min/1.73m2 Kidney Failure < 15 mL/min/1.73m2 *Relative to young adult level Estimated glomerular filtration rate is determined by the 2020 CKD-EPI equation recommended by the National Kidney Foundation (A Unifying Approach to GFR Estimation: Recommendations of the NKF-ASK Task Force on Reassessing the Inclusion of Race in Diagnosing Kidney Disease, JASN 2020). The CKD-EPI equation should not be used for patients with unstable renal function and has not been validated in children and those over 70. Current interpretive data was last reviewed 2021. Testing performed by: [address] [address] Blood 07/28/2025 10:3 6 AM CDT 07/28/2025 10:46 AM CDT us Rehab Venkata COUGHLIN LAB BLOOD ORDERABLES Final Resu lt [facility] Department [place] [address] * (ABNORMAL) Differential, auto (07/28/2025 10:36 AM CDT) Neutrophil abs 3.13 1.50 - 6.50 K/cumm Comment:Testing performed by : [address] [address] Imm gran abs 0.01 0.00 - 0.10 K/cumm ALLAN Comment:Testing performed by : [address] [address] Lymphocyte abs 0.73(L) 0.80 - 3.30 K/cumm ALLAN Comment:Testing performed by : [address] [address] Monocyte abs 0.27 0.20 - 0.80 K/cumm ALLAN Comment:Testing performed by : [address] [address] Eosinophil abs 0.08 0.00 - 0.50 K/cumm [facility] Comment:Testing performed by : [address] [address] Basophil abs 0.03 0.00 - 0.10 K/cumm [facility] Comment:Testing performed by : [address] [address] Neutrophil pct 73.6 % [facility] Comment: Interpretive Data Percent cell count reference ranges are not reported, since discordance with absolute values may lead to misinterpretation of CBC data. Current Interpretive Data was last revised on 2018. Testing performed by: [address] [address] Imm gran pct 0.2 % [facility] Comment: Interpretive Data Percent cell count reference ranges are not reported, since discordance with absolute values may lead to misinterpretation of CBC data. Current Interpretive Data was last revised on 2018. Testing performed by: [address] [address] Lymphocyte pct 17.2 % [facility] Comment: Interpretive Data Percent cell count reference ranges are not reported, since discordance with absolute values may lead to misinterpretation of CBC data. Current Interpretive Data was last revised on 2018. Testing performed by: [address] [address] Monocyte pct 6.4 % [facility] Comment: Interpretive Data Percent cell count reference ranges are not reported, since discordance with absolute values may lead to misinterpretation of CBC data. Current Interpretive Data was last revised on 2018. Testing performed by: [address] [address] Eosinophil pct 1.9 % [facility] Comment: Interpretive Data Percent cell count reference ranges are not reported, since discordance with absolute values may lead to misinterpretation of CBC data. Current Interpretive Data was last revised on 2018. Testing performed by: [address] [address] Basophil pct 0.7 % [facility] Comment: Interpretive Data Percent cell count reference ranges are not reported, since discordance with absolute values may lead to misinterpretation of CBC data. Current Interpretive Data was last revised on 2018. Testing performed by: [address] [address] Blood 07/28/2025 10:3 6 AM CDT 07/28/2025 10:46 AM CDT [facility] Venkata COUGHLIN LAB BLOOD ORDERABLES Final Resu lt ALLAN [address] [facility] [place] [address] * CBC with auto differential (07/28/2025 10:36 AM CDT) WBC 4.25 3.80 - 9.90 K/cumm Comment:Testing performed by : [address] [address] Hgb 13.5 13.0 - 17.5 g/dL ALLAN Comment:Testing performed by : [address] [address] Hct 39.7 38.9 - 50.3 % ALLAN Comment:Testing performed by : [address] [address] Plt 171 150 - 400 K/cumm ALLAN Comment:Testing performed by : [address] [address] MPV 11.2 9.1 - 12.3 fL ALLAN PERES Comment:Testing performed by : [address] [address] RBC 4.50 4.30 - 5.80 M/cumm ALLAN PERES Comment:Testing performed by : [address] [address] MCV 88.2 81.3 - 96.4 fL ALLAN PERES Comment:Testing performed by : [address] [address] MCH 30.0 27.1 - 33.3 pg ALLAN Comment:Testing performed by : [address] [address] MCHC 34.0 32.3 - 35.7 g/dL ALLAN PERES Comment:Testing performed by : [address] [address] RDW CV 13.4 11.1 - 14.9 % ALLAN PERES Comment:Testing performed by : [address] [address] RDW SD 43.4 35.7 - 48.1 fL ALLAN PERES Comment:Testing performed by : [address] [address] NRBC abs 0.00 0.00 - 0.01 K/cumm ALLAN PERES Comment:Testing performed by : [address] [address] Blood Venous blood specimen / Unknown 07/28/2025 10:36 AM CDT 07/28/2025 10:46 AM CDT Rehab Venkata COUGHLIN LAB BLOOD ORDERABLES Final Resu lt Performing Organization Address City/[facility]/ZIP Co de Phone Number [address] [place] [place] [address] * Lipase (07/28/2025 10:36 AM CDT) Lipase 23 10 - 99 Units/L Comment:Testing performed by : [address] [address] Blood Venous blood specimen / Unknown 07/28/2025 10:36 AM CDT 07/28/2025 10:46 AM CDT [facility] COUG[facility] LAB BLOOD ORDERABLES Final Resu lt Performing Organization Address City/[facility]/ZIP Co de Phone Number [address] [place] [address] * (ABNORMAL) Comprehensive metabolic panel (07/28/2025 10:36 AM CDT) Sodium 137 135 - 145 mmol/L Comment:Testing performed by : [address] [address] Potassium, pl 4.0 3.3 - 4.9 mmol/L [facility] Comment:Testing performed by : [address] [address] Chloride 104 97 - 110 mmol/L ALLAN Comment:Testing performed by : [address], [place]., [address] CO2 20(L) 22 - 32 mmol/L ALLAN Comment:Testing performed by : [address] [address] Anion gap 13 2 - 15 mmol/L ALLAN Comment:Testing performed by : [address], [place]., [address] BUN 17 6 - 25 mg/dL [facility] Comment:Testing performed by : [address] [address] Creatinine 1.12 0.80 - 1.30 mg/dL [facility] Comment:Testing performed by : [address] [address] Glucose 184 70 - 199 mg/dL [facility] Comment: Interpretive Data Fasting glucose >/= 126 mg/dl is diagnostic for diabetes. Fasting is defined as no caloric intake for at least 8 hours. Fasting glucose between 100 mg/dl to 125 mg/dl is diagnostic of prediabetes. In a patient with classic symptoms of hyperglycemia or hyperglycemic crisis, a random glucose >/= 200 mg/dl is diagnostic for diabetes. In the absence of unequivocal hyperglycemia, results should be confirmed by repeat testing. The classification and Diagnosis of Diabetes Diabetes Care 2021; 46: S19-S40. Current interpretive data was last revised 2022. Testing performed by: [address] [address] Calcium 9.8 8.5 - 10.3 mg/dL ALLAN Comment:Testing performed by : [address] [address] Bilirubin, total 0.6 0.1 - 1.2 mg/dL [facility] Comment:Testing performed by : [address] [address] Protein, pl 6.8 6.5 - 8.5 g/dL ALLAN Comment:Testing performed by : [address] [address] Albumin 4.0 3.5 - 5.0 g/dL ALLAN Comment:Testing performed by : [address], [address] Alk phos 57 40 - 130 Units/L ALLAN Comment:Testing performed by : [address], [address] ALT 17 7 - 55 Units/L ALLAN Comment:Testing performed by : [address], [address] AST 20 10 - 50 Units/L ALLAN Comment:Testing performed by : [address], [address] Blood Venous blood specimen / Unknown 07/28/2025 10:36 AM CDT 07/28/2025 10:46 AM CDT Rehab Venkata COUGHLIN LAB BLOOD ORDERABLES Final Resu lt ALLAN [address] [facility] [place] [address] * Colonoscopy (12/19/2022) Anatomical Region Laterality Modality Other Historical Provider ENDOSCOPY PROCEDURES Jewels l Result from Last 3 Months or Most Recently Relevant to Health Maintenance Insurance MEDICARE [facility] MEDICARE Member Subscriber Plan / Payer ( fective 2012-Present) Name:Ronny Hernandez Member ID:[id number] Relation to Subscriber:Self Name:Ronny Hernandez Subscriber ID:[id number] Payer ID:[id number] Group ID:Not on file Type:[employer]IC[employer] Address: [address] [address] [facility] Care Teams Informatics Specialist Relationship Specialty Start Date End Date Javier Barros MD [address] [place] [address] PCP - General Emergency Medicine 07/30/25
--- OUTSIDE RECORDS SUMMARY | 2025-08-02 08:30 | XMS_ITS | Encounter Summary ---
Author Organization [facility] Facility Care Team Providers Care Liberal Arts Teacher Name Role Phone Scout Cabello MD Primary Care Provid er Unknown, Notinfile Primary Care Provider Unavail able Scout Cabello MD Primary Care Provid er Aime Sandhu MD Primary Care Provider [phone] Scout Cabello MD Primary Care Provid er Javier Barros MD Primary Care Provide r Encounter Details Date Type Department Care Team (Latest Contact Info) Description 06/20/2017 Orders Only MMG CLINCONV ProviderRobbie MD [address] [place] [address] Social History Tobacco Use Types Packs/Day Years Used Date Smoking Tobacco: Former Sex and Gender Information Value Date Recorded Sex Assigned at Not on file 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 ML 12/17/2020 12/16/2020 07/28/2025 1:32 PM C DT documented as of this encounter Care Teams Liberal Arts Teacher Relationship Specialty Start Date End Date Scout Cabello MD [address] [place] [address] PCP - General 07/04/17 07/08/17 Unknown, Notinfile PCP - General 07/09/17 07/15/17 Scout Cabello MD [address] [place] [address] PCP - General 07/16/17 12/16/20 Aime Sandhu MD [address] [place] [address] PCP - General 12/17/20 04/22/21 Scout Cabello MD [address] [place] [address] PCP - General Family Medicine 04/23/21 07/28/25 Javier Barros MD [address] [place] [address] PCP - General Emergency Medicine 07/30/25 documented as of this encounter
--- OUTSIDE RECORDS SUMMARY | 2025-08-02 08:30 | XMS_ITS | Encounter Summary ---
Author Organization [facility] Facility Care Team Providers Care Vice President Of Talent Management Name Role Phone Scout Cabello MD Primary Care Provid er Unknown, Notinfile Primary Care Provider Unavail able Scout Cabello MD Primary Care Provid er Aime Snadhu MD Primary Care Provider [phone] [phone] Scout Cabello MD Primary Care Provid er Jaiver Barros MD Primary Care Provide r Encounter Details Date Type Department Care Team (Latest Contact Info) Description 02/13/2017 Orders Only MMG CLINCONV ProviderRobbie MD [address] [place] [address] Social History Tobacco Use Types Packs/Day Years Used Date Smoking Tobacco: Former Sex and Gender Information Value Date Recorded Sex Assigned at Not on file 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 Gender Identity Not on file Sexual [...] documented as of this encounter Care Teams Vice President Of Talent Management Relationship Specialty Start Date End Date Scout Cabello MD [address] [place] [address] PCP - General 07/04/17 07/08/17 Unknown, Notinfile PCP - General 07/09/17 07/15/17 Scout Cabello MD [address] [place] [address] PCP - General 07/16/17 12/16/20 Aime Sandhu MD [address] [place] [address] PCP - General 12/17/20 04/22/21 Scout Cabello MD [address] [place] [address] PCP - General Family Medicine 04/23/21 07/28/25 Javier Barros MD [address] [place] [address] PCP - General Emergency Medicine 07/30/25 documented as of this encounter
--- OUTSIDE RECORDS SUMMARY | 2025-08-02 08:51 | XMS_ITS | Encounter Summary ---
Author Organization [facility] Facility Care Team Providers Care Med Peds Name Role Phone Scout Cabello MD Primary Care Provid er Unknown, Notinfile Primary Care Provider Unavail able Scout Cabello MD Primary Care Provid er Aime Sandhu MD Primary Care Provider [phone] [phone] Scout Cabello MD Primary Care Provid er Javier Barros MD Primary Care Provide r Encounter Details Date Type Department Care Team (Latest Contact Info) Description 06/20/2017 Orders Only MMG CLINCONV ProviderRobbie MD [address] [place] [address] Social History Tobacco Use Types Packs/Day Years Used Date Smoking Tobacco: Former Sex and Gender Information Value Date Recorded Sex Assigned at Not on file 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 Gender Identity Not on file Sexual Orientation [...] documented as of this encounter Care Teams Med Peds Relationship Specialty Start Date End Date Scout Cabello MD [address] [place] [address] PCP - General 07/04/17 07/08/17 Unknown, Notinfile PCP - General 07/09/17 07/15/17 Scout Cabello MD [address] [place] [address] PCP - General 07/16/17 12/16/20 Aime Sandhu MD [address] [place] [address] PCP - General 12/17/20 04/22/21 Scout Cabello MD [address] [place] [address] PCP - General Family Medicine 04/23/21 07/28/25 Javier Barros MD [address] [place] [address] PCP - General Emergency Medicine 07/30/25 documented as of this encounter
--- OUTSIDE RECORDS SUMMARY | 2025-08-02 08:51 | XMS_ITS | Clinical Summary ---
Author Organization [address] Address [address] [address] Care Team Providers Care Office Machine Repair Shop Supervisor Name Role Phone Javier Barros MD Primary [...] Department Care Team Description 07/30/2025 1:36 PM [facility] - 07/30/2025 4:20 PM [facility] Emergency Department [address] [place] [address] Low back pain, unspecified back pain laterality, unspecified chronicity, unspecified whether sciatica present (Primary Dx) Discharge Disposition: Discharge to home or self care 07/28/2025 11:35 AM T - 07/28/2025 2:24 PM [facility] Emergency Department [address] [place] [address] Kerrie Hastings MD Flank pain (Primary Dx); Abdominal pain Discharge Disposition: Discharge to home or self care from Last 3 Months Immunizations Immunization Administration Dates Next Due Influenza, Quadrivalent, Hig h Dose, Preservative Free, Intrr 08/04/2020,08/04/2020 TD Preservative Free 11/26/2016 [facility]OST[facility]IVE 12/29/2013 Surgical History Surgery Date Site/Laterality Comments DC COLONOSCOPY FLX DX W/MATEUS J SPEC WHEN PFRMD Colonoscopy - (Added by MoonClerk Conv) Medical History Medical History Date Comments Personal history of urinary calculi Nephrolithiasis - 12/07/2012 (Added by TW Conv) Intra-abdominal and pelvic s welling, mass and lump, unspecified site Mass of abdomen - enoc l mass (Added by MoonClerk Conv) Gout Gout - (Added by MoonClerk Conv) Personal history of other di seases of the circulatory system History of hypertension - (A dded by [employer]) Family History Medical History Relation Name Comments Cancer Father Family history of malignant neoplasm - (Added by MoonClerk Conv) Cancer Other Cancer - (Added by Moon[employer]erk Conv) Diabetes Other Diabetes Mellit us - (Added by MoonClerk Conv) Prostate cancer Other Prostate Can cer - father (Added by MoonClerk Conv) Relation Name Status Comments Father Other [...] on file 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 pH may affect urinary stone formation. For example, urine pH below 6.0 may help reduce the tendency for calcium phosphate stones and pH greater than 6.0 may reduce the tendency for uric acid stone formation. Source: [facility] [employer] Current Interpretive Data was last revised on 2017 Testing performed by: [address] [address] Protein, ur ql Negative Negative ALLAN Comment:Testing performed by : [address] [address] Glucose, ur ql Negative Negative ALLAN Comment:Testing performed by : [address] [address] Ketones, ur Negative Negative ALLAN Comment:Testing performed by : [facility], [address] [place] [address]., [address] Bilirubin, ur Negative Negative ALLAN Comment:Testing performed by : [address], [place]., [address] Blood, ur Negative Negative ALLAN Comment:Testing performed by : [address], [place]., [address] Urobilinogen, ur <2.0 <2.0 mg/dL ALLAN Comment:Testing performed by : [address], [place]., [address] Nitrite, ur Negative Negative ALLAN Comment:Testing performed by : [address] [address] Leukocyte esterase, ur Negative Negative ALLAN Comment:Testing performed by : [address], [place]., [address] UA reflex comment Reflex conditions for microscopic UA and culture not met. ALLAN Comment:Testing performed by : [address], [place]., [address] Urine 07/28/2025 12:3 5 PM CDT 07/28/2025 12:41 PM CDT [facility] Final Result ALLAN [address] [facility] Department [place] [address] * CT Abdomen Pelvis WO Contrast (07/28/2025 [...] by Gerard Campo M.D. CH: Report ID: [id number] Reading Location: [place] [address] Procedure Note Gerard Campo Jr., MD - [...] LOWER CHEST: Mild subpleural reticular opacities with [id number] in the right lower lobe. There is [...] Gerard Campo M.D. CH: TREMAINE Report ID: [id number] Reading Location: [place] [address] PROCEDURES Final Result [...] was last reviewed 2021. Testing performed by: [address] [address] Blood 07/28/2025 10:3 6 AM CDT 07/28/2025 10:46 AM CDT us Rehab Venkata COUGHLIN LAB BLOOD ORDERABLES Final [facility] lt [facility] Department [place] [address] * (ABNORMAL) Differential, auto (07/28/2025 10:36 AM CDT) Neutrophil abs 3.13 1.50 - 6.50 K/cumm Comment:Testing performed by : [address] [address] Imm gran abs 0.01 0.00 - 0.10 K/cumm ALLAN Comment:Testing performed by : [address] [address] Lymphocyte abs 0.73(L) 0.80 - 3.30 K/cumm ALLAN Comment:Testing performed by : [address] [address] Monocyte abs 0.27 0.20 - 0.80 K/cumm ALLAN Comment:Testing performed by : [address] [address] Eosinophil abs 0.08 0.00 - 0.50 K/cumm [facility] Comment:Testing performed by : [address] [address] Basophil abs 0.03 0.00 - 0.10 K/cumm [facility] Comment:Testing performed by : [address] [address] Neutrophil pct 73.6 % [facility] Comment: Interpretive Data Percent cell count reference ranges are not reported, since discordance with absolute values may lead to misinterpretation of CBC data. Current Interpretive Data was last revised on 2018. Testing performed by: [address] [address] Imm gran pct 0.2 % [facility] Comment: Interpretive Data Percent cell count reference ranges are not reported, since discordance with absolute values may lead to misinterpretation of CBC data. Current Interpretive Data was last revised on 2018. Testing performed by: [address] [address] Lymphocyte pct 17.2 % [facility] Comment: Interpretive Data Percent cell count reference ranges are not reported, since discordance with absolute values may lead to misinterpretation of CBC data. Current Interpretive Data was last revised on 2018. Testing performed by: [address] [address] Monocyte pct 6.4 % [facility] Comment: Interpretive Data Percent cell count reference ranges are not reported, since discordance with absolute values may lead to misinterpretation of CBC data. Current Interpretive Data was last revised on 2018. Testing performed by: [address] [address] Eosinophil pct 1.9 % [facility] Comment: Interpretive Data Percent cell count reference ranges are not reported, since discordance with absolute values may lead to misinterpretation of CBC data. Current Interpretive Data was last revised on 2018. Testing performed by: [address] [address] Basophil pct 0.7 % [facility] Comment: Interpretive Data Percent cell count reference ranges are not reported, since discordance with absolute values may lead to misinterpretation of CBC data. Current Interpretive Data was last revised on 2018. Testing performed by: [address] [address] Blood 07/28/2025 10:3 6 AM CDT 07/28/2025 10:46 AM CDT us Rehab Venkata COUGHLIN LAB BLOOD ORDERABLES Final Resu lt ALLAN [address] [facility] Department [place] [address] * CBC with auto differential (07/28/2025 10:36 AM CDT) WBC 4.25 3.80 - 9.90 K/cumm Comment:Testing performed by : [address] [address] Hgb 13.5 13.0 - 17.5 g/dL ALLAN Comment:Testing performed by : [address] [address] Hct 39.7 38.9 - 50.3 % ALLAN Comment:Testing performed by : [address] [address] Plt 171 150 - 400 K/cumm ALLAN Comment:Testing performed by : [address] [address] MPV 11.2 9.1 - 12.3 fL ALLAN PERES Comment:Testing performed by : [address] [address] RBC 4.50 4.30 - 5.80 M/cumm ALLAN PERES Comment:Testing performed by : [address] [address] MCV 88.2 81.3 - 96.4 fL ALLAN PERES Comment:Testing performed by : [address] [address] MCH 30.0 27.1 - 33.3 pg ALLAN Comment:Testing performed by : [address] [address] MCHC 34.0 32.3 - 35.7 g/dL ALLAN PERES Comment:Testing performed by : [address] [address] RDW CV 13.4 11.1 - 14.9 % ALLAN PERES Comment:Testing performed by : [address] [address] RDW SD 43.4 35.7 - 48.1 fL ALLAN PERES Comment:Testing performed by : [address] [address] NRBC abs 0.00 0.00 - 0.01 K/cumm LALAN PERES Comment:Testing performed by : [address] [address] Blood Venous blood specimen / Unknown 07/28/2025 10:36 AM CDT 07/28/2025 10:46 AM CDT Rehab Venkata COUGHLIN LAB BLOOD ORDERABLES Final Resu lt Performing Organization Address City/[facility]/ZIP Co de Phone Number [address] [place] [address] * Lipase (07/28/2025 10:36 AM CDT) Lipase 23 10 - 99 Units/L Comment:Testing performed by : [address] [address] Blood Venous blood specimen / Unknown 07/28/2025 10:36 AM CDT 07/28/2025 10:46 AM CDT [facility] BLOOD ORDERABLES Final Resu lt Performing Organization Address City/[facility]/ZIP Co de Phone Number [address] [place] [place] [address] * (ABNORMAL) Comprehensive metabolic panel (07/28/2025 10:36 AM CDT) Sodium 137 135 - 145 mmol/L Comment:Testing performed by : [address] [address] Potassium, pl 4.0 3.3 - 4.9 mmol/L [facility] Comment:Testing performed by : [address] [address] Chloride 104 97 - 110 mmol/L ALLAN Comment:Testing performed by : [address], [place]., [address] CO2 20(L) 22 - 32 mmol/L ALLAN Comment:Testing performed by : [address] [address] Anion gap 13 2 - 15 mmol/L ALLAN Comment:Testing performed by : [address], [place]., [address] BUN 17 6 - 25 mg/dL [facility] Comment:Testing performed by : [address] [address] Creatinine 1.12 0.80 - 1.30 mg/dL [facility] Comment:Testing performed by : [address] [address] Glucose 184 70 - 199 mg/dL [facility] Comment: Interpretive Data Fasting glucose >/= [...] was last revised 2022. Testing performed by: [address] [address] Calcium 9.8 8.5 - 10.3 mg/dL ALLAN Comment:Testing performed by : [address] [address] Bilirubin, total 0.6 0.1 - 1.2 mg/dL [facility] Comment:Testing performed by : [address] [address] Protein, pl 6.8 6.5 - 8.5 g/dL ALLAN Comment:Testing performed by : [address] [address] Albumin 4.0 3.5 - 5.0 g/dL ALLAN Comment:Testing performed by : [address], [address] Alk phos 57 40 - 130 Units/L ALLAN Comment:Testing performed by : [address], [address] ALT 17 7 - 55 Units/L ALLAN Comment:Testing performed by : [address], [address] AST 20 10 - 50 Units/L ALLAN Comment:Testing performed by : [address], [address] Blood Venous blood specimen / Unknown 07/28/2025 10:36 AM CDT 07/28/2025 10:46 AM CDT Rehab Venkata COUGHLIN LAB BLOOD ORDERABLES Final Resu lt ALLAN [address] [facility] Department [place] [address] * Colonoscopy (12/19/2022) Anatomical Region Laterality Modality Other Historical Provider ENDOSCOPY PROCEDURES Jewels l Result from Last 3 Months or Most Recently Relevant to Health Maintenance Insurance MEDICARE [facility] MEDICARE [facility] Care Teams Office Machine Repair Shop Supervisor Relationship Specialty Start Date End Date Javier Barros MD [address] [place] [address] PCP - General Emergency Medicine 07/30/25
--- OUTSIDE RECORDS SUMMARY | 2025-08-02 08:51 | XMS_ITS | Encounter Summary ---
Author Organization [facility] Facility Care Team Providers Care Creative Strategist Name Role Phone Scout Cabello MD Primary Care Provid er Unknown, Notinfile Primary Care Provider Unavail able Scout Cabello MD Primary Care Provid er Aime Sandhu MD Primary Care Provider [phone] Scout Cabello MD Primary Care Provid er Javier Barros MD Primary Care Provide r Encounter Details Date Type Department Care Team (Latest Contact Info) Description 02/13/2017 Orders Only [facility]G CLINCONV ProviderRobbie MD [address] [place] [address] Social History Tobacco Use Types Packs/Day Years Used Date Smoking Tobacco: Former Sex and Gender Information Value Date Recorded Sex Assigned at Not on file 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 Gender Identity Not on file Sexual Orientation [...] documented as of this encounter Care Teams Creative Strategist Relationship Specialty Start Date End Date Scout Cabello MD [address] [place] [address] PCP - General 07/04/17 07/08/17 Unknown, Notinfile PCP - General 07/09/17 07/15/17 Scout Cabello MD [address] [place] [address] PCP - General 07/16/17 12/16/20 Aime Sandhu MD [address] [place] [address] PCP - General 12/17/20 04/22/21 Scout Cabello MD [address] [place] [address] PCP - General Family Medicine 04/23/21 07/28/25 Javier Barros MD [address] [place] [address] PCP - General Emergency Medicine 07/30/25 documented as of this encounter
[2025-08-02 09:35] VITALS: BP 167/75; PULSE 84; RESP 15; O2SAT 98
[2025-08-02 10:57] LABS: Add Urine Microscopic? NO; Appearance Urine Clear (Clear); Glucose Urine UA Negative (Negative); Leukocyte Esterase Ur Negative LEU/UL (Negative); Nitrate Urine Negative (Negative); Specific Grav Ur 1.011 (1.001-1.035)
[2025-08-02 10:58] LABS: Hematocrit 39.6 % (42.0-52.0); Hemoglobin 13.4 g/dL (14.0-18.0); Immature Granulocyte Percent A 0.2 % (0-0.5); Lymphocytes Absolute Auto 0.69 K/mm3 (0.9-3.2); Mean Corpuscular HGB Conc 33.8 g/dl (32-36); Mean Corpuscular Hemoglobin 29.6 pg (26-34); Mean Corpuscular Volume 87.6 fl (80-100); Nucleated Red Blood Cells Absolute Auto 0.000 K/mm3 (0.0-0.012); Nucleated Red Blood Cells Perc 0.0 % (0.0-0.2); Platelet Count Result 171 k/mm3 (150-375); Red Blood Count 4.52 M/mm3 (4.6-6.20); White Blood Count 5.1 K/mm3 (4.5-10.0)
[2025-08-02 11:14] LABS: Alanine Aminotransferase 20 U/L (6-50); Albumin Level 4.0 g/dL (3.5-5.1); Alkaline Phosphatase 65 U/L (38-126); Anion Gap 8 mmol/L (4-12); Aspartate Amino Transferase 27 U/L (17-59); Bilirubin,Total 0.8 mg/dL (0.2-1.3); Blood Urea Nitrogen 22 mg/dL (9-20); Calcium 9.6 mg/dL (8.4-10.2); Carbon Dioxide 21 mmol/L (22-30); Chloride 108 mmol/L (98-107); Estimated CRCL calculation 52 ml/min; Estimated Glomerular Filt Rate > 60; Glucose 107 mg/dL (65-110); Potassium 4.1 mmol/L (3.4-5.0); Sodium 137 mmol/L (137-145); Total Protein 7.1 g/dL (6.3-8.2)
[2025-08-02] MEDS: ONDANSETRON INJ 4 MG/2 ML VIAL IV PUSH (11:22)
[2025-08-02] MEDS: SODIUM CHLORIDE 0.9% IV 1,000 ML 999 ML IV CONT (11:22)
[2025-08-02] MEDS: HYDROmorphone HCL INJ (*CRX) 1 MG/ML SYR 0.5 MG IV PUSH (11:23)
[2025-08-02 12:33] VITALS: BP 169/85; PULSE 84; RESP 16; O2SAT 97
[2025-08-02 13:11] VITALS: BP 160/70; PULSE 90; RESP 16; O2SAT 97
== END 2025-08-02 13:12 | disposition home or self-care (01) ==
PROVIDERS: Emergency Provider Emergency Medicine; PCP Emergency Medicine
DX: M54.50 Low back pain, unspecified (principal); R10.9 Unspecified abdominal pain; I10 Essential (primary) hypertension; E78.00 Pure hypercholesterolemia, unspecified; Z87.891 Personal history of nicotine dependence; Z79.82 Long term (current) use of aspirin; Z79.899 Other long term (current) drug therapy
CPT/HCPCS: 36415; 72131; 74177; 80053; 81003; 85025; 96361; 96374; 96375; 99284; J1171; J2405; J7030; Q9967

== ENCOUNTER 2025-08-25 10:12 | Outpatient (CLI) | payer MEDICARE, OTHER, SELFPAY ==
--- NOTE | ~2025-08-25 | US_ITS ---
EXAMINATION: US renal BI, 08/25/2025 10:15 CDT HISTORY: N28.1 - Cyst of kidney, acquired Comparison: 08/02/2025. Technique: Lin-scale and color Doppler images were obtained. Findings: KIDNEYS: The renal cortices bilaterally are slightly thinned and echogenic, there are no calculi, no hydronephrosis. Right Kidney: Right kidney 11.6 x 4.7 x 5.5 cm multiple simple and complex appearing cystic lesions the largest mid pole 4.4 x 5.7 x 5.9 cm with solid appearing focus superior pole 5.8 x 5.6 cm which appears to correlate with fatty density lesion noted on the previous CT. Left kidney 13 x 7.1 x 6.2 cm with multiple simple appearing renal cysts the largest measuring 5.7 x 4.1 cm. Bladder: The bladder is unremarkable. . Impression: 1. Bilateral simple and complex appearing renal cysts. There is a solid- appearing lesion superior pole right kidney which appears to correlate with a fatty density lesion on the prior CT that probably reflects sequelae of previous intervention, correlation is required with the clinical history. Follow-up is recommended to assess. Clinically if there is concern for neoplasm contrast- enhanced MRI is recommended Reviewed, dictated and finalized at location P. Impression: 1. Bilateral simple and complex appearing renal cysts. There is a solid-appeari ng lesion superior pole right kidney which appears to correlate with a fatty de nsity lesion on the prior CT that probably reflects sequelae of previous interv ention, correlation is required with the clinical history. Follow-up is recomme nded to assess. Clinically if there is concern for neoplasm contrast-enhanced M RI is recommended
== END 2025-08-25 10:13 | disposition home or self-care (01) ==
LOC: MICIMG 10:13
PROVIDERS: PCP Emergency Medicine; Visit Provider Emergency Medicine
DX: R93.421 Abnormal radiologic findings on diagnostic imaging of right kidney (principal); N28.1 Cyst of kidney, acquired
CPT/HCPCS: 76770

== ENCOUNTER 2025-11-14 07:29 | Outpatient (CLI) | payer MEDICARE, OTHER, SELFPAY ==
--- OUTSIDE RECORDS SUMMARY | 2025-11-14 07:33 | XMS_ITS | Clinical Summary ---
Author Organization [address] Address [address] [address] Care Team Providers Care Floor Supervisor Name Role Phone Javier Barros MD Primary Care Provide r Allergies No known active allergies Medications multivitamin tablet Take 1 tablet by mouth daily Active amLODIPine (NORVASC) 10 mg tabletIndications :Benign essential hypertension TAKE 1 TABLET BY MOUTH EVERY DAY 90 tablet 3 1 Active doxazosin (CARDURA) 4 mg tabletIndications :Benign essential hypertension,Marcial gn prostatic hyperplasia with urinary frequency TAKE 1 TABLET BY MOUTH EVERY DAY 90 tablet 3 1 Active albuterol HFA (PROVENTIL HFA,VENTOLIN HFA,PROAIR HFA) 90 mcg/actuation inhaler Inhale 2 puffs every 4 (four) hours as needed for shortness of breath 5 Active aspirin 81 mg enteric coated tablet Take 1 tablet (81 mg total) by mouth daily 3 Active cholecalciferol (VITAMIN D-3) 1,000 unit capsule Take 2 capsules (2,000 Units total) by mouth daily 4 Active hydrALAZINE (APRESOLINE) 50 mg tablet Take 1 tablet (50 mg total) by mouth 3 (three) times a day 5 Active losartan (COZAAR) 100 mg tablet Take 1 tablet (100 mg total) by mouth daily 4 Active meloxicam (MOBIC) 15 mg tablet Take 1 tablet (15 mg total) by mouth daily 5 Active tamsulosin (FLOMAX) 0.4 mg extended release capsule Take 1 capsule (0.4 mg total) by mouth daily 5 Active ketorolac (TORADOL) 10 mg tablet Take 1 tablet (10 mg total) by mouth every 6 (six) hours as needed for pain 20 tablet 5 Active lidocaine (LIDODERM) 5 %Indications:Pain Place 1 patch on the skin daily for 12 hours Use patch for 12 hours on, 12 hours off. 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 Nephrolithiasis 01/05/2013 Encounters Date Type Department Care Team Description 09/07/2025 6:02 AM CDT - 09/07/2025 11:59 PM CDT Hospital Encounter [place] [id number] Pain in right foot Discharge Disposition: Discharge to home or self care 09/04/2025 4:17 PM CDT - 09/04/2025 11:59 PM CDT Hospital Encounter [place] [id number] Cyst of kidney, acquired Discharge Disposition: Discharge to home or self care from Last 3 Months Immunizations Immunization Administration Dates Next Due Influenza, Quadrivalent, Hig h Dose, Preservative Free, Intrr 08/04/2020,08/04/2020 TD Preservative Free 11/26/2016 ZOSTER LIVE 12/29/2013 Surgical History Surgery Date Site/Laterality Comments DE COLONOSCOPY FLX DX W/MATEUS J SPEC WHEN PFRMD Colonoscopy - (Added by TW Conv) Medical History Medical History Date Comments Personal history of urinary calculi Nephrolithiasis - 12/07/2012 (Added by TW Conv) Intra-abdominal and pelvic s welling, mass and lump, unspecified site Mass of abdomen - enoc l mass (Added by TW Conv) Gout Gout - (Added by TW Conv) Personal history of other di seases of the circulatory system History of hypertension - (A dded by TW Conv) Family History Medical History Relation Name Comments Cancer Father Family history of malignant neoplasm - (Added by TW Conv) Cancer Other Cancer - (Added by TW Conv) Diabetes Other Diabetes Mellit us - (Added by TW Conv) Prostate cancer Other Prostate Can cer - father (Added by TW Conv) Relation Name Status Comments Father Other [...] on file 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 Gender Identity Not on file Sexual Orientation [...] Well Visit 65+ 09/24/2020 09/24/2019 Covid-19 Vaccine (3 - 2024-2 6 season) 2025 08/02/2021, 07/12/2021 Influenza Vaccine (#1) 2025 08/04/2020, 2019 [...] Procedure Name Priority Date/Time Associated Diagnosis Comments MRI FOOT RIGHT WO CONTRAST Schedule Routine, Read Routine (OP Routine) 09/07/2025 6:50 AM CDT Pain in right foot MRI ABDOMEN KIDNEY W WO CONTRAST Schedule Routine, Read Routine (OP Routine) 09/04/2025 5:10 PM CDT Cyst of kidney, acquired CT ABDOMEN PELVIS WO CONTRAST ED 07/28/2025 12:13 PM CDT COLONOSCOPY Routine 12/19/2022 from Last 3 Months or Most Recently Relevant to Health Maintenance Results * MRI Foot Right WO Contrast (09/07/2025 6:50 AM CDT) Anatomical Region Laterality Modality Lower Extremities Right Magnetic Reson ance 09/07/2025 7:10 AM CDT Impressions 09/07/2025 7:10 AM CDT 1. 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 Electronically signed by: Javier Darling M.D. Narrative 09/07/2025 7:10 AM CDT EXAMINATION: 1. MR right foot without contrast HISTORY: Right foot pain, chondrosis FINDINGS: No comparison available. MR examination of the right foot was performed without contrast. No intravenous or intra-articular contrast was administered for this examination. MR-compatible markers bracket the medial midfoot. Within the brachial region, there is severe 1st tarsometatarsal joint osteoarthritis with small effusion and subchondral marrow edema. Additional mild midfoot chondrosis. The Lisfranc ligament is intact. No acute fracture identified. The intrinsic foot muscles bulk is within normal limits. Mild dorsal medial foot subcutaneous edema. The forefoot joint spaces appear within normal limits. No intermetatarsal head bursitis. No MR evidence of a neuroma. Procedure Note Javier Darling MD - 09/07/2025 EXAMINATION: 1. MR right foot without contrast HISTORY: Right foot pain, chondrosis FINDINGS: No comparison available. MR examination of the right foot was performed without contrast. No intravenous or intra-articular contrast was administered for this examination. MR-compatible markers bracket the medial midfoot. Within the brachial region, there is severe 1st tarsometatarsal joint osteoarthritis with small effusion and subchondral marrow edema. Additional mild midfoot chondrosis. The Lisfranc ligament is intact. No acute fracture identified. The intrinsic foot muscles bulk is within normal limits. Mild dorsal medial foot subcutaneous edema. The forefoot joint spaces appear within normal limits. No intermetatarsal head bursitis. No MR evidence of a neuroma. IMPRESSION: 1. 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 Electronically signed by: Javier Darling M.D. Javier Barros MD IMG MRI PROCEDURES Fi nal Result * MRI Abdomen Kidney W WO Contrast (09/04/2025 5:10 PM CDT) Anatomical Region Laterality Modality Body N/A Magnetic Resonan ce 09/05/2025 10:0 5 AM CDT Narrative 09/05/2025 10:16 AM CDT EXAM DESCRIPTION: MRI ABDOMEN KIDNEY W WO CONTRAST REASON FOR STUDY: Renal cyst 80-year-old male with past medical history of kidney stones states right-sided flank pain x 3 weeks ago. Pain has subsided. Incidental finding from CT study in July. TECHNIQUE: MR images of the abdomen were acquired without and with intravenous contrast according to the renal mass abdominal protocol. All images stored on PACS. CONTRAST TYPE/DOSE: 20mL of GADOTERATE MEGLUMINE 0.5 MMOL/ML INTRAVENOUS SOLUTION (SO) injected via intravenous COMPARISON: CT abdomen and pelvis 07/28/2025 FINDINGS: KIDNEYS: No hydronephrosis. Right renal upper pole embolization coils are better evaluated on prior CT. Redemonstrated exophytic encapsulated fat at the right renal upper pole, consistent with fat necrosis related to prior angiomyolipoma embolization. Bilateral renal cortical simple cysts, the largest at the left interpolar region measuring 6.4 x 5.4 cm. A left renal 1.8 cm lower pole cyst is noted to contain a small amount of layering hemorrhagic/proteinaceous debris. No suspicious renal mass. LIVER: Normal size. No mass. No cysts. GALLBLADDER: No stones, wall thickening or pericholecystic fluid BILE DUCTS: No intrahepatic or extrahepatic ductal dilatation. SPLEEN: Normal size. No focal lesions. PANCREAS: No masses. No significant calcifications. No adjacent inflammation or peripancreatic fluid collections. Pancreatic duct not dilated. ADRENALS: Normal. GI: No visualized abnormality. PERITONEUM: No ascites. RETROPERITONEUM: No mass or adenopathy. VASCULATURE: No abdominal aortic aneurysm. MUSCULOSKELETAL: No acute findings. OTHER: No other abnormality. IMPRESSION: 1. No suspicious renal lesion. Bilateral simple renal and minimally complex cysts. 2. Redemonstrated posttreatment changes of the right renal upper pole related to coil embolization of an angiomyolipoma. THIS IS AN ELECTRONICALLY VERIFIED FINAL REPORT 09/05/2025 10:16 AM - Electronically signed by Jose L Sanuders M.D. KR: APRIL Report ID: [id number] Reading Location: [id number] Procedure Note Jose L Saunders MD - 09/05/2025 EXAM DESCRIPTION: MRI ABDOMEN KIDNEY W WO CONTRAST REASON FOR STUDY: Renal cyst 80-year-old male with past medical history of kidney stones statesright-sided flank pain x 3 weeks ago. Pain has subsided. Incidental finding from CTstudy in July. TECHNIQUE: MR images of the abdomen were acquired without and with intravenous contrast according to the renal mass abdominal protocol. All images stored on PACS. CONTRAST TYPE/DOSE: 20mL of GADOTERATE MEGLUMINE 0.5 MMOL/ML INTRAVENOUS SOLUTION (SO) injected via intravenous COMPARISON: CT abdomen and pelvis 07/28/2025 FINDINGS: KIDNEYS: No hydronephrosis. Right renal upper poleembolization coils are better evaluated on prior CT. Redemonstrated exophytic encapsulated fat at the right renal upper pole, consistent with fatnecrosis related to prior angiomyolipoma embolization. Bilateral renal corticalsimple cysts, the largest at the left interpolar region measuring 6.4 x 5.4 cm.A left renal 1.8 cm lower pole cyst is noted to contain a small amount of layering hemorrhagic/proteinaceous debris. No suspicious renal mass. LIVER: Normal size. No mass. No cysts. GALLBLADDER: No stones, wall thickening or pericholecystic fluid BILE DUCTS: No intrahepatic or extrahepatic ductal dilatation. SPLEEN: Normal size. No focal lesions. PANCREAS: No masses. No significant calcifications. No adjacentinflammation or peripancreatic fluid collections. Pancreatic duct not dilated. ADRENALS: Normal. GI: No visualized abnormality. PERITONEUM: No ascites. RETROPERITONEUM: No mass or adenopathy. VASCULATURE: No abdominal aortic aneurysm. MUSCULOSKELETAL: No acute findings. OTHER: No other abnormality. IMPRESSION: 1. No suspicious renal lesion. Bilateral simple renal and minimallycomplex cysts. 2. Redemonstrated posttreatment changes of the right renal upper pole related to coil embolization of an angiomyolipoma. THIS IS AN ELECTRONICALLY VERIFIED FINAL REPORT 09/05/2025 10:16 AM - Electronically signed by Jose L Saunders M.D. KR: APRIL Report ID: [id number] Reading Location: [id number] Javier Barros MD IMG MRI PROCEDURES Fi nal Result * CT Abdomen Pelvis WO Contrast (07/28/2025 [...] Gerard Campo M.D. CH: TREMAINE Report ID: [id number] Reading Location: [place] [id number] Procedure Note Gerard Campo Jr., MD - [...] LOWER CHEST: Mild subpleural reticular opacities with [id number] in the right lower lobe. There is [...] Gerard Campo M.D. CH: TREMAINE Report ID: [id number] Reading Location: [id number] [address] MO[facility] IMG CT PROCEDURES Final Result * Colonoscopy (12/19/2022) Anatomical Region Laterality Modality Other Historical Provider MD ENDOSCOPY PROCEDURES Jewels l Result from Last 3 Months or Most Recently Relevant to Health Maintenance Insurance [place] [id number] MEDICARE [facility] [place] [address] MEDICARE [facility] [place] [address] Care Teams Floor Supervisor Relationship Specialty Start Date End Date Javier Barros MD [address] [place], [place] [id number] (work) PCP - General Emergency Medicine 07/30/25
--- OUTSIDE RECORDS SUMMARY | 2025-11-14 07:33 | XMS_ITS | Encounter Summary ---
Author Organization [facility] Care Team Providers Care Industrial Psychologist Name Role Phone Scout Cabello MD Primary Care Provid er Unknown, Notinfile Primary Care Provider Unavail able Scout Cabello MD Primary Care Provid er Aime Sandhu MD Primary Care Provider [phone] Scout Cabello MD Primary Care Provid er Javier Barros MD Primary Care Provide r Encounter Details Date Type Department Care Team (Latest Contact Info) Description 02/13/2017 Orders Only [facility] CLINCONV ProviderRobbie MD [address] [place] [id number] Social History Tobacco Use Types Packs/Day Years Used Date Smoking Tobacco: Former Sex and Gender Information Value Date Recorded Sex Assigned at Not on file 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
--- OUTSIDE RECORDS SUMMARY | 2025-11-14 07:33 | XMS_ITS | Encounter Summary ---
Author Organization [facility] Care Team Providers Care Back Tender Cloth Printing Name Role Phone Scout Cabello MD Primary Care Provid er Unknown, Notinfile Primary Care Provider Unavail able Scout Cabello MD Primary Care Provid er Aime Sandhu MD Primary Care Provider [phone] Scout Cabello MD Primary Care Provid er Javier Barros MD Primary Care Provide r Encounter Details Date Type Department Care Team (Latest Contact Info) Description 06/20/2017 Orders Only [facility] CLINCONV ProviderRobbie MD [address] [place] [address] Social History Tobacco Use Types Packs/Day Years Used Date Smoking Tobacco: Former Sex and Gender Information Value Date Recorded Sex Assigned at Not on file 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
--- OUTSIDE RECORDS SUMMARY | 2025-11-14 07:33 | XMS_ITS | Clinical Summary ---
Author Organization [facility] Address [address] [place] [address] Care Team Providers Care Leather Sponger Name Role Phone Javier Barros MD Primary Care Provider + [phone] Social History Tobacco Use Types Packs/Day Years Used Date Smoking Tobacco: Never Assessed Sex and Gender Information Value Date Recorded Sex Assigned at Male 08/08/2025 4:24 PM CDT Legal Sex Male 4:01 PM CDT Gender Identity Not on file Sexual Orientation Not on file Plan of Treatment Health Maintenance Due Date Last Done Comments Hepatitis C 1963 Pneumococcal Vaccine: 50+ Years (1 of 1 - PCV) 1997 Annual Medicare Wellness Visit 2012 Zoster Vaccines (2 of 3) 02/23/2014 12/29/2013 DTaP, Tdap and Td Vaccines ( 1 - Tdap) 11/27/2016 11/26/2016 RSV Immunization or 60+ Years (1 - 1-dose 75+ series) 2022 COVID-19 Vaccine (3 - 2024-2 6 season) 2025 08/02/2021, 07/12/2021 Influenza Adult (#1) 2025 08/04/2020 Hepatitis A Vaccines Aged Out No long er eligible based on patient's age to complete this topic Meningococcal B Vaccine Aged Out No l onger eligible based on patient's age to complete this topic Meningococcal Vaccine Aged Out No bassem ingrid eligible based on patient's age to complete this topic RSV Immunizations Under 20 Months Aged Out No longer eligible b ased on patient's age to complete this topic Insurance MEDICARE [facility] Care Teams Leather Sponger Relationship Specialty Start Date End Date Javier Barros MD [address] [place] [address] PCP - General INTERNAL MEDICINE 08/08/25
[2025-11-14 08:48] LABS: Alanine Aminotransferase 18 U/L (6-50); Albumin Level 3.7 g/dL (3.5-5.1); Alkaline Phosphatase 64 U/L (38-126); Anion Gap 5 mmol/L (4-12); Aspartate Amino Transferase 23 U/L (17-59); Bilirubin,Total 0.6 mg/dL (0.2-1.3); Blood Urea Nitrogen 19 mg/dL (9-20); Calcium 9.4 mg/dL (8.4-10.2); Carbon Dioxide 24 mmol/L (22-30); Chloride 112 mmol/L (98-107); Cholesterol 177 mg/dL (0-200); Estimated Glomerular Filt Rate > 60; Glucose 105 mg/dL (65-110); HDL Direct 47 mg/dL; Potassium 4.3 mmol/L (3.4-5.0); Sodium 141 mmol/L (137-145); Total Protein 6.6 g/dL (6.3-8.2); Triglycerides 53 mg/dL (<150)
== END 2025-11-14 07:30 | disposition home or self-care (01) ==
PROVIDERS: PCP Emergency Medicine; Visit Provider Emergency Medicine
DX: E78.5 Hyperlipidemia, unspecified (principal); E55.9 Vitamin D deficiency, unspecified
CPT/HCPCS: 36415; 80053; 80061; 82306